=== PATIENT | female | born 1940 | race Caucasian/White ===

== ENCOUNTER 2017-03-07 11:08 | Observation (INO) | payer OTHER ==
[~2017-03-07] VITALS: Ht 165.1 cm; Wt 38.7 kg
[~2017-03-07 11:08] MED LIST: CHOL50006 PO; DICY1TAB26 PO; FAMO20 PO; HYDR-2768 PO; LOVA20TA PO; ZOFR4TAB3 SL
[2017-03-07 11:19] VITALS: BP 132/62; PULSE 94; RESP 18; TEMP 97.4; O2SAT 96
--- NOTE | 2017-03-07 11:29 | PD ---
HPI Chief Complaint: Fall Time Seen by Provider: 11:29 Travel History International Travel<30 days: No Contact w/Intl Traveler<30days: No Traveled to known affect area: No History of Present Illness HPI 76-year-old female with a history of hypertension and dementia is brought to the emergency room by EMS for evaluation of fall. Per EMS report the patient was sitting on the second step of her house when she got dizzy and fell forward hitting the right side of her head. Per EMS report there was no loss of consciousness. The patient has dementia and is oriented to person only and is unable to provide any history of events. Per EMS report this is the patient's mental status baseline, she lives with her son who is her caregiver. The patient is complaining of pain on the right side of her head and pain in her right elbow. She denies any other complaints however she is a poor historian due to dementia. PFSH Past Medical History Arthritis: Yes (HANDS) Asthma: No Blood Disorders: No Heart Rhythm Problems: No Cancer: No Cardiac Catheterization: No Cardiovascular Problems: Yes High Cholesterol: Yes Chest Pain: No Congestive Heart Failure: No COPD: No Cerebrovascular Accident: No Dementia: Yes Diabetes: No Diminished Hearing: No Endocrine: No GERD: No Genitourinary: No Hiatal Hernia: No Hypertension: Yes Immune Disorder: No Implanted Vascular Access Dvce: No Kidney Stones: No Musculoskeletal: Yes Neurologic: Yes Psychiatric: No Reproductive: No Respiratory: No Migraines: No Renal Failure: No Seizures: No Sleep Apnea: No Thyroid Disease: No Ulcer: No ?: Not Menopausal: Yes : 3 Para: 2 : 1 Ovarian Cysts: Yes Past Surgical History Abdominal Surgery: No AICD: No Appendectomy: Yes Arteriovenous Shunt: No Cardiac Surgery: No Coronary Artery Bypass Graft: No Ear Surgery: No Endocrine Surgery: No Eye Surgery: Yes (LEFT RETINA REPAIR BY LASER 2000) Genitourinary Surgery: Yes Gynecologic Surgery: Yes (CYST REMOVED FROM OVARY 194) Hysterectomy: Yes Insulin Pump: No Joint Replacement: No Oral Surgery: Yes (TEETH EXTRACTED) Pacemaker: No Thoracic Surgery: No Tonsillectomy: Yes Other Surgery: Yes Social History Alcohol Use: No Tobacco Use: Yes (2 PPD) Substance Use: No Allergies-Medications (Allergen,Severity, Reaction): Coded Allergies: No Known Allergies (Verified , 6/18/17) Reported Meds & Prescriptions Reported Meds & Active Scripts Active Active Prescriptions or Reported Medications Unobtainable Review of Systems Except as stated in HPI: all other systems reviewed are Neg Physical Exam Narrative GENERAL: Well-nourished and well-developed elderly patient in no acute distress. Backboard with cervical collar in place. SKIN: Abrasion to right scalp and right elbow. HEAD: Normocephalic and atraumatic. There is a contusion with swelling and tenderness to the right scalp. EYES: No scleral icterus, injection, or drainage. PERRLA. EOMI. No hyphema present. ENT: No septal hematoma or hemotympanum noted. Oropharynx is clear and the airway is patent. NECK: Supple and the trachea is midline. No obvious deformities or crepitus. CARDIOVASCULAR: Regular rate and rhythm. RESPIRATORY: Breath sounds are equal bilaterally with no accessory muscle use, wheezing, rhonchi, or crackles. GASTROINTESTINAL: Abdomen is soft, non-tender, and nondistended. MUSCULOSKELETAL: No obvious deformities, swelling, cyanosis, or ecchymosis is present throughout the upper and lower extremities. Patient has full range of motion without any signs of neurovascular compromise. BACK: Nontender without any obvious deformities, bony point tenderness, or crepitus noted throughout the thoracic and lumbar vertebrae. NEUROLOGICAL: Awake, alert, and oriented to person only. Patient is unaware of place, time or situation. Normal speech. Cranial nerves are grossly intact. Data Data Last Documented VS Vital Signs Date Time Temp Pulse Resp B/P Pulse Ox O2 Delivery O2 Flow Rate FiO2 03/07/17 13:05 79 18 132/85 97 Room Air 03/07/17 11:19 97.4 Orders Electrocardiogram (03/07/17 11:27) Complete Blood Count With Diff (03/07/17 11:27) Comprehensive Metabolic Panel (03/07/17 11:27) Ckmb (Isoenzyme) Profile (03/07/17 11:27) Troponin I (03/07/17 11:27) Act Partial Throm Time (Ptt) (03/07/17 11:27) Prothrombin Time / Inr (Pt) (03/07/17 11:27) Urinalysis - C+S If Indicated (03/07/17 11:27) Chest, Single Ap (03/07/17 11:27) Ct Brain W/O Iv Contrast(Rout) (03/07/17 11:27) Ct Cerv Spine W/O Contrast (03/07/17 11:27) Ecg Monitoring (03/07/17 11:27) Iv Access Insert/Monitor (03/07/17 11:27) Oximetry (03/07/17 11:27) Sodium Chloride 0.9% Flush (Ns Flush) (03/07/17 11:30) Cath For Specimen (03/07/17 11:27) Elbow, Complete (4 Vws) (03/07/17 11:27) Tetanus/Diphtheria Tox Adult (Tetanus/Di (03/07/17 11:30) Sodium Chlorid 0.9% 500 Ml Inj (Ns 500 M (03/07/17 11:45) Lactic Acid Sepsis Protocol (03/07/17 12:43) Blood Culture (03/07/17 12:43) Urine Culture (03/07/17 12:30) Ceftriaxone Inj (Rocephin Inj) (03/07/17 13:45) Potassium Chloride Eff (K-Lyte Cl Eff) (03/07/17 13:45) Admit Order (Ed Use Only) (03/07/17 14:20) Labs Laboratory Tests Test 03/07/17 03/07/17 03/07/17 12:18 12:30 13:00 White Blood Count 21.0 TH/MM3 Red Blood Count 4.60 MIL/MM3 Hemoglobin 13.9 GM/DL Hematocrit 41.1 % Mean Corpuscular Volume 89.5 FL Mean Corpuscular Hemoglobin 30.1 PG Mean Corpuscular Hemoglobin 33.7 % Concent Red Cell Distribution Width 13.8 % Platelet Count 472 TH/MM3 Mean Platelet Volume 9.3 FL Neutrophils (%) (Auto) 86.7 % Lymphocytes (%) (Auto) 6.7 % Monocytes (%) (Auto) 5.9 % Eosinophils (%) (Auto) 0.4 % Basophils (%) (Auto) 0.3 % Neutrophils # (Auto) 18.2 TH/MM3 Lymphocytes # (Auto) 1.4 TH/MM3 Monocytes # (Auto) 1.2 TH/MM3 Eosinophils # (Auto) 0.1 TH/MM3 Basophils # (Auto) 0.1 TH/MM3 CBC Comment DIFF FINAL Differential Comment Prothrombin Time 12.4 SEC Prothromb Time International 1.1 RATIO Ratio Activated Partial 30.8 SEC Thromboplast Time Sodium Level 139 MEQ/L Potassium Level 3.3 MEQ/L Chloride Level 102 MEQ/L Carbon Dioxide Level 29.4 MEQ/L Anion Gap 8 MEQ/L Blood Urea Nitrogen 14 MG/DL Creatinine 0.92 MG/DL Estimat Glomerular Filtration 60 ML/MIN Rate Random Glucose 123 MG/DL Calcium Level 9.8 MG/DL Total Bilirubin 0.4 MG/DL Aspartate Amino Transf 27 U/L (AST/SGOT) Alanine Aminotransferase 21 U/L (ALT/SGPT) Alkaline Phosphatase 102 U/L Total Creatine Kinase 67 U/L Troponin I LESS THAN 0.02 NG/ML Total Protein 7.8 GM/DL Albumin 3.2 GM/DL Urine Color YELLOW Urine Turbidity HAZY Urine pH 6.5 Urine Specific [place] 1.006 Urine Protein 30 mg/dL Urine Glucose (UA) NEG mg/dL Urine Ketones NEG mg/dL Urine Occult Blood SMALL Urine Nitrite NEG Urine Bilirubin NEG Urine Urobilinogen LESS THAN 2.0 MG/DL Urine Leukocyte Esterase LARGE Urine RBC 1 /hpf Urine WBC /hpf Urine WBC Clumps MANY Urine Bacteria MOD /hpf Microscopic Urinalysis Comment CATH-CULTURE IND Lactic Acid Level 1.2 mmol/L MDM Medical Decision Making Medical Screen Exam Complete: Yes Emergency Medical Condition: Yes Differential Diagnosis Intracranial hemorrhage versus concussion versus contusion versus fracture versus electrolyte abnormality versus UTI Narrative Course 76-year-old female is brought to the emergency department by EMS for evaluation of dizziness and fall. Patient is afebrile, vital signs are stable. The patient is unable to provide any history due to her dementia. She does complain of pain in the right side of her head and her right elbow. No focal neurologic deficits on examination. IV access is obtained, labs are drawn and sent. Patient is placed on cardiac telemetry and pulse oximetry monitoring. EKG shows sinus rhythm with occasional PVCs, no acute ST elevations or depressions. CT and x-ray imaging as been ordered and is pending. Head CT is negative for any acute abnormalities. CT of the cervical spine is negative for any acute abnormalities. Chest x-ray is negative. Right elbow x-ray is negative. CBC shows elevated white blood cell count 21, otherwise unremarkable. CMP shows hypokalemia with a potassium of 3.3, otherwise unremarkable. This is repleted orally here in the ED. Troponin is less than 0.02. Lactic acid is 1.2. Coags are unremarkable. Urinalysis shows 30 protein, small occult blood, large leukocyte Estrace, innumerable white blood cells, many white blood for, and moderate bacteria. Blood cultures are pending. Patient is administered IV fluids and Rocephin. She'll be admitted to medicine service for sepsis with UTI. Physician Communication Physician Communication I spoke with Dr. Casillas [facility] who agrees to admit the patient to his service. Diagnosis Primary Impression: Sepsis Qualified Code: A41.9 - Sepsis, due to unspecified organism Additional Impressions: Urinary tract infection Qualified Code: N39.0 - Urinary tract infection with hematuria, site unspecified Fall Qualified Code: W19.XXXA - Fall, initial encounter Admitting Information Admitting Physician Requests: Admit Scripts Unable to Obtain Active Prescriptions or Reported Meds Teresita hBatia Mar 07, 2017 11:29
[2017-03-07] MEDS ORDERED: TETANUS/DIPHTHERIA TOXOID ADULT 0.5 ML VIAL IM ONE (11:30)
[2017-03-07] MEDS ORDERED: SODIUM CHLORIDE 0.9% FLUSH 10 ML FLUSH IVF PRN (11:30)
[2017-03-07] MEDS ORDERED: SODIUM CHLORID 0.9% 500 ML INJ 500 ML IV ONE ×2 (11:45→14:30)
[2017-03-07 12:08] VITALS: O2SAT 96
--- NOTE | 2017-03-07 12:10 | RADRPT ---
EXAM DATE/TIME: 03/07/2017 11:41 [facility] COMPARISON: CT BRAIN W/O CONTRAST, April 18, 2012, 22:35. INDICATIONS : Fall today, laceration to forehead. RADIATION DOSE: 56.35 CTDIvol (mGy) MEDICAL HISTORY : Hypertension. Dementia. SURGICAL HISTORY : Hysterectomy. ENCOUNTER: Initial ACUITY: 1 day PAIN SCALE: Non-responsive LOCATION: Bilateral head TECHNIQUE: Multiple contiguous axial images were obtained of the head. Using automated exposure control and adj ustment of the mA and/or kV according to patient size, radiation dose was kept as low as reasonably a chievable to obtain optimal diagnostic quality images. FINDINGS: White matter ischemic changes are present which have progressed since the 2011 exam. Remote lacunar i nfarct right basal ganglia. No mass, hemorrhage, or midline shift. No hydrocephalus. No acute bony ab normality. CONCLUSION: 1. No acute findings. White matter ischemic changes that have progressed since 2012. Yousif Israel MD on March 07, 2017 at 12:06 Board Certified Radiologist. This report was verified electronically.
--- NOTE | 2017-03-07 12:15 | RADRPT ---
EXAM DATE/TIME: 03/07/2017 11:41 [facility] COMPARISON: No previous studies available for comparison. INDICATIONS : Fall today, laceration to forehead. RADIATION DOSE: 26.5 CTDIvol (mGy) MEDICAL HISTORY : Hypertension. Dementia. SURGICAL HISTORY : Hysterectomy. ENCOUNTER: Initial ACUITY: 1 day PAIN SCALE: Non-responsive LOCATION: Bilateral neck TECHNIQUE: Volumetric scanning of the cervical spine was performed. Multiplanar reconstructions in the sagittal, coronal and oblique axial planes were performed. Using automated exposure control and adjustment o f the mA and/or kV according to patient size, radiation dose was kept as low as reasonably achievable to obtain optimal diagnostic quality images. FINDINGS: No acute fracture. There is a grade 1 anterolisthesis of L3 on L4 likely degenerative. Slight bursal of normal cervical lordosis. There is mild AP canal canal stenosis at C5-6. No other significant bony canal stenosis. Moderate facet arthropathy. CONCLUSION: 1. No acute fracture. Mild degenerative anterolisthesis at C3-4 with slight reversal of normal cervic al lordosis. Yousif Israel MD on March 07, 2017 at 12:08 Board Certified Radiologist. This report was verified electronically.
--- NOTE | 2017-03-07 12:22 | RADRPT ---
EXAM DATE/TIME: 03/07/2017 12:00 [facility] COMPARISON: No previous studies available for comparison. INDICATIONS : Chest pain from fall. MEDICAL HISTORY : None. SURGICAL HISTORY : None. ENCOUNTER: Initial ACUITY: 1 day PAIN SCORE: Non-responsive. LOCATION: Bilateral chest FINDINGS: There is no focal consolidation or significant effusion. Heart size normal. Tortuous aorta. Mild scol iosis. CONCLUSION: 1. No acute findings. Mild hyperinflation. Yousif Israel MD on March 07, 2017 at 12:18 Board Certified Radiologist. This report was verified electronically.
--- NOTE | 2017-03-07 12:25 | RADRPT ---
EXAM DATE/TIME: 03/07/2017 12:06 [facility] COMPARISON: No previous studies available for comparison. INDICATIONS : Right elbow laceration and pain from fall. MEDICAL HISTORY : None. SURGICAL HISTORY : None. ENCOUNTER: Initial ACUITY: 1 day PAIN SCORE: Non-responsive. LOCATION: Right elbow FINDINGS: Multiple view examination of the right elbow demonstrates no soft tissue swelling, joint effusion, or fracture. The osseous structures are in normal alignment. Bony mineralization is decreased. CONCLUSION: 1. Osteopenia. No acute bony abnormality. Yousif Israel MD on March 07, 2017 at 12:20 Board Certified Radiologist. This report was verified electronically.
[2017-03-07 12:38] LABS: AUTOMATED NEUTROPHIL # 18.2 TH/MM3 (1.8-7.7); BASOPHIL # 0.1 TH/MM3 (0-0.2); BASOPHIL % 0.3 % (0.0-2.0); EOSINOPHIL # 0.1 TH/MM3 (0-0.4); EOSINOPHIL % 0.4 % (0.0-4.0); HEMATOCRIT 41.1 % (35.0-46.0); HEMO FLAGS DIFF FINAL; LYMPH % 6.7 % (9.0-44.0); LYMPHOCYTE # 1.4 TH/MM3 (1.0-4.8); MEAN CELL VOLUME 89.5 FL (80.0-100.0); MEAN CORPUSCULAR HEMOGLOBIN 30.1 PG (27.0-34.0); MEAN CORPUSCULAR HGB CONC 33.7 % (32.0-36.0); MONO % 5.9 % (0.0-8.0); NEUT % 86.7 % (16.0-70.0); PLATELET COUNT 472 TH/MM3 (150-450); RED CELL DISTRIBUTION WIDTH 13.8 % (11.6-17.2)
[2017-03-07 12:49] LABS: APTT (PATIENT) 30.8 SEC (24.3-30.1); INTERNATIONAL NORMALIZED RATIO 1.1 RATIO; PROTHROMBIN TIME - PATIENT 12.4 SEC (9.8-11.6)
[2017-03-07 12:56] LABS: BACTERIA, URINE MOD /hpf; BLOOD, URINE SMALL (NEG); GLUCOSE,URINE NEG (NEG); KETONE, URINE NEG (NEG); NITRITE,URINE NEG (NEG); PH, URINE 6.5 (5.0-8.5); URINE COLOR YELLOW (YELLW/STRAW)
[2017-03-07 12:58] LABS: COMMENT (UR) CATH-CULTURE IND; CULTURE IF INDICATED CATH CULTURE IND
[2017-03-07 13:05] VITALS: BP 132/85; PULSE 79; RESP 18; O2SAT 97
[2017-03-07 13:06] LABS: ALT (GPT) 21 U/L (10-53); ANION GAP 8 MEQ/L (5-15); AST (GOT) 27 U/L (15-37); BICARBONATE 29.4 MEQ/L (21.0-32.0); BLOOD UREA NITROGEN 14 MG/DL (7-18); CHLORIDE 102 MEQ/L (98-107); GLOMERULAR FILTRATION RATE 60 ML/MIN (>89); POTASSIUM 3.3 MEQ/L (3.5-5.1); SODIUM (NA) 139 MEQ/L (136-145)
[2017-03-07 13:10] LABS: ALKALINE PHOSPHATASE 102 U/L (45-117); TOTAL BILIRUBIN ADULT 0.4 MG/DL (0.2-1.0)
[2017-03-07 13:17] LABS: CREATINE KINASE 67 U/L (26-192)
[2017-03-07] MEDS ORDERED: POTASSIUM CHLORIDE 25 MEQ EFFERVESCENT TAB PO ONE (13:45)
[2017-03-07] MEDS ORDERED: cefTRIAXone INJ 1,000 MG in SODIUM CHLORIDE 0.9% INJ 100 ML IV ONE (13:45)
[2017-03-07] MEDS ORDERED: ONDANSETRON HCL 4 MG/2 ML VIAL IV PUSH PRN (14:30)
[2017-03-07] MEDS ORDERED: ACETAMINOPHEN 325 MG TAB PO PRN (14:30)
[2017-03-07] MEDS ORDERED: SODIUM CHLOR 0.9% 1000 ML INJ 1,000 ML IV SCH (14:32)
--- NOTE | 2017-03-07 14:44 | HHI.HP ---
[facility] Service [facility] Primary Care Physician Armando Mishra M.D. Admission Diagnosis Sepsis, UTI, Fall Diagnoses: (1) Sepsis Diagnosis: Principal (2) Fall Diagnosis: Principal (3) Urinary tract infection Diagnosis: Principal Chief Complaint: fall Travel History International Travel<30 Days: No Contact w/Intl Traveler <30 Da: No Traveled to Known Affected Are: No Sepsis Criteria SIRS Criteria (2 or more): Heart rate over 90, WBC > 73031, < 4000 or > 10% bands Sepsis Criteria (SIRS+source): Infect source susp/known Criteria Outcome: Meets sepsis criteria History of Present Illness patient is a 76 y/o female with history of dementia,hypertension and COPD who was brought to ER after she fell at home. patient is not a good historian and most of the information was obtained from ER documents and caregiver. she reportedly fell at home earlier. there's no report of loss of consciousness. she was in no acute distress and denies any pain at the time of my evaluation. Review of Systems Constitutional: DENIES: Fever, Weight loss, Chills, Night Sweats Eyes: DENIES: Blurred vision, Diplopia, Vision loss, Double Vision Ears, nose, mouth, throat: DENIES: Tinnitus, Vertigo, Throat pain, Epistaxis Respiratory: DENIES: Apneas, Cough, Snoring, Wheezing, Hemoptysis, Sputum production, Shortness of breath Cardiovascular: DENIES: Chest pain, Palpitations, Syncope, Dyspnea on Exertion , PND, Lower Extremity Edema, Orthopnea, Claudication Gastrointestinal: DENIES: Abdominal pain, Black stools, Bloody stools, Constipation, Diarrhea, Nausea, Vomiting, Difficulty Swallowing, Anorexia Genitourinary: DENIES: Urinary frequency, Urgency, Hematuria, Dysuria Musculoskeletal: DENIES: Joint pain, Muscle aches, Stiffness, Joint Swelling Integumentary: DENIES: Rash Neurologic: DENIES: Abnormal gait, Headache, Localized weakness, Paresthesias, Seizures, Speech Problems, Tremor, Poor Balance Psychiatric: DENIES: Anxiety, Confusion, Mood changes, Depression, Hallucinations, Agitation, Suicidal Ideation, Homicidal Ideation, Delusions Past Family Social History Past Medical History dementia hypertension COPD Past Surgical History appendectomy Reported Medications to be verified. Allergies: Coded Allergies: No Known Allergies (Verified , 03/07/17) Active Ordered Medications Current Medications Sodium Chloride (NS Flush) 2 ml UNSCH PRN IVF FLUSH AFTER USING IV ACCESS; Start 03/07/17 at 11:30 Tetanus/ Diphtheria Toxoids 0.5 ml 0.5 ml ONCE ONCE IM Last administered on 12:14; Start 03/07/17 at 11:30; Stop 03/07/17 at 11:31; Status DC Sodium Chloride 500 ml @ 500 mls/hr ONCE ONCE IV Last administered on 12:14; Start 03/07/17 at 11:45; Stop 03/07/17 at 12:44; Status DC Ceftriaxone Sodium/Sodium Chloride (Rocephin Inj/NS Inj) 100 ml @ 200 mls/hr ONCE ONCE IV ; Start 03/07/17 at 13:45; Stop 03/07/17 at 14:14; Status DC Potassium Bicarb/ Potassium Chloride (K-Lyte Cl Eff) 25 meq ONCE ONCE PO ; Start 03/07/17 at 13:45; Stop 03/07/17 at 13:46; Status DC Family History not relevant to this admission. Social History ex-smoker.lives with her son and the caregiver. Physical Exam Vital Signs Vital Signs Date Time Temp Pulse Resp B/P Pulse Ox O2 Delivery O2 Flow Rate FiO2 03/07/17 13:05 79 18 132/85 97 Room Air 03/07/17 12:08 96 Room Air 03/07/17 11:21 90 18 94 Room Air 03/07/17 11:19 97.4 94 18 132/62 96 Physical Exam GENERAL: This is a well-nourished, well-developed patient, in no apparent distress. SKIN: No rashes, ecchymoses or lesions. Cool and dry. HEAD:superficial laceration on the right scalp with no bleeding. EYES: Pupils equal round and reactive. Extraocular motions intact. No scleral icterus. No injection or drainage. ENT: Nose without bleeding, purulent drainage or septal hematoma. Throat without erythema, tonsillar hypertrophy or exudate. Uvula midline. Airway patent. NECK: Trachea midline. No JVD or lymphadenopathy. Supple, nontender, no meningeal signs. CARDIOVASCULAR: Regular rate and rhythm without murmurs, gallops, or rubs. RESPIRATORY: Clear to auscultation. Breath sounds equal bilaterally. No wheezes , rales, or rhonchi. GASTROINTESTINAL: Abdomen soft, non-tender, nondistended. No hepato-splenomegaly , or palpable masses. No guarding. MUSCULOSKELETAL: Extremities without clubbing, cyanosis, or edema. No joint tenderness, effusion, or edema noted. No calf tenderness. Negative Homans sign bilaterally. NEUROLOGICAL: Awake and alert. oriented to person but not oriented to place or time Laboratory Laboratory Tests Test 03/07/17 03/07/17 03/07/17 12:18 12:30 13:00 White Blood Count 21.0 Red Blood Count 4.60 Hemoglobin 13.9 Hematocrit 41.1 Mean Corpuscular Volume 89.5 Mean Corpuscular Hemoglobin 30.1 Mean Corpuscular Hemoglobin 33.7 Concent Red Cell Distribution Width 13.8 Platelet Count 472 Mean Platelet Volume 9.3 Neutrophils (%) (Auto) 86.7 Lymphocytes (%) (Auto) 6.7 Monocytes (%) (Auto) 5.9 Eosinophils (%) (Auto) 0.4 Basophils (%) (Auto) 0.3 Neutrophils # (Auto) 18.2 Lymphocytes # (Auto) 1.4 Monocytes # (Auto) 1.2 Eosinophils # (Auto) 0.1 Basophils # (Auto) 0.1 CBC Comment DIFF FINAL Differential Comment Prothrombin Time 12.4 Prothromb Time International 1.1 Ratio Activated Partial 30.8 Thromboplast Time Sodium Level 139 Potassium Level 3.3 Chloride Level 102 Carbon Dioxide Level 29.4 Anion Gap 8 Blood Urea Nitrogen 14 Creatinine 0.92 Estimat Glomerular Filtration 60 Rate Random Glucose 123 Calcium Level 9.8 Total Bilirubin 0.4 Aspartate Amino Transf 27 (AST/SGOT) Alanine Aminotransferase 21 (ALT/SGPT) Alkaline Phosphatase 102 Total Creatine Kinase 67 Troponin I LESS THAN 0.02 Total Protein 7.8 Albumin 3.2 Urine Color YELLOW Urine Turbidity HAZY Urine pH 6.5 Urine Specific [place] 1.006 Urine Protein 30 Urine Glucose (UA) NEG Urine Ketones NEG Urine Occult Blood SMALL Urine Nitrite NEG Urine Bilirubin NEG Urine Urobilinogen LESS THAN 2.0 Urine Leukocyte Esterase LARGE Urine RBC 1 Urine WBC Urine WBC Clumps MANY Urine Bacteria MOD Microscopic Urinalysis Comment CATH-CULTURE IND Lactic Acid Level 1.2 Date/Time Procedure Status Source Growth 03/07/17 13:05 Aerobic Blood Culture Received Blood Peripheral Pending 03/07/17 13:05 Anaerobic Blood Culture Received Blood Peripheral Pending 03/07/17 12:30 Urine Culture Received Urine Catheterized Urine Pending Result Diagram: 03/07/17 1218 03/07/17 1218 Imaging Last Impressions Head CT 03/07/177 Signed Impressions: Service Date/Time: Tuesday, March 07, 2017 11:41 - CONCLUSION: 1. No acute findings. White matter ischemic changes that have progressed since 2011. Yousif Israel MD Elbow X-Ray 03/07/171126 Signed Impressions: Service Date/Time: Tuesday, March 07, 2017 12:06 - CONCLUSION: 1. Osteopenia. No acute bony abnormality. Yousif Israel MD Chest X-Ray 03/07/171126 Signed Impressions: Service Date/Time: Tuesday, March 07, 2017 12:00 - CONCLUSION: 1. No acute findings. Mild hyperinflation. Yousif Israel MD Cervical Spine CT 03/07/171126 Signed Impressions: Service Date/Time: Tuesday, March 07, 2017 11:41 - CONCLUSION: 1. No acute fracture. Mild degenerative anterolisthesis at C3-4 with slight reversal of normal cervical lordosis. Yousif Israel MD Assessment and Plan Assessment and Plan A/P - sepsis due to UTI continue with IV Rocephin- follow the cultures- will monitor temps- CBC in am. - fall- fall precautions- consult PT - hypokalemia- replaced- will monitor -history of hypertension, COPD and dementia; will verify the home meds and resume as appropriate -DVT prophylaxis with SCD's Discussed Condition With the patient and her caregiver- ER. Physician Certification 2 Midnight Certification Type: Admission for Inpatient Services Order for Inpatient Services The services are ordered in accordance with Medicare regulations or non- Medicare payer requirements, as applicable. In the case of services not specified as inpatient-only, they are appropriately provided as inpatient services in accordance with the 2-midnight benchmark. Estimated LOS (days): 2 days is the estimated time the patient will need to remain in the hospital, assuming treatment plan goals are met and no additional complications. Post-Hospital Plan: Not yet determined Problem Qualifiers (1) Sepsis: Qualified Code: A41.9 - Sepsis, due to unspecified organism (2) Fall: Qualified Code: W19.XXXA - Fall, initial encounter (3) Urinary tract infection: Qualified Code: N39.0 - Urinary tract infection with hematuria, site unspecified See Casillas MD Mar 07, 2017 14:44
[2017-03-07 14:47] VITALS: BP 127/56; PULSE 89; RESP 18; O2SAT 98
[2017-03-07 18:34] VITALS: BP 138/76; RESP 18; TEMP 98.3
[2017-03-07 20:00] VITALS: BP 94/64; PULSE 82; RESP 17; TEMP 96.3; O2SAT 98
[2017-03-08] VITALS: BP 107/62; PULSE 70; RESP 17; TEMP 96; O2SAT 96
[2017-03-08 05:16] LABS: AUTOMATED NEUTROPHIL # 13.8 TH/MM3 (1.8-7.7); BASOPHIL # 0.1 TH/MM3 (0-0.2); BASOPHIL % 0.5 % (0.0-2.0); EOSINOPHIL # 0.1 TH/MM3 (0-0.4); EOSINOPHIL % 0.7 % (0.0-4.0); HEMATOCRIT 37.8 % (35.0-46.0); HEMO FLAGS DIFF FINAL; LYMPH % 13.3 % (9.0-44.0); LYMPHOCYTE # 2.3 TH/MM3 (1.0-4.8); MEAN CELL VOLUME 91.3 FL (80.0-100.0); MEAN CORPUSCULAR HEMOGLOBIN 29.2 PG (27.0-34.0); MONO % 5.3 % (0.0-8.0); NEUT % 80.2 % (16.0-70.0); PLATELET COUNT 394 TH/MM3 (150-450); RED BLOOD COUNT 4.14 MIL/MM3 (4.00-5.30); RED CELL DISTRIBUTION WIDTH 13.6 % (11.6-17.2); WHITE BLOOD COUNT 17.2 TH/MM3 (4.0-11.0)
[2017-03-08 05:29] LABS: BICARBONATE 26.4 MEQ/L (21.0-32.0); POTASSIUM 3.3 MEQ/L (3.5-5.1)
[2017-03-08 07:53] VITALS: BP 129/59; PULSE 76; RESP 17; TEMP 97.8; O2SAT 95
--- NOTE | 2017-03-08 10:13 | HHI.PR ---
Subjective Remarks in no acute distress. denies pain. afebrile. Objective Vitals Vital Signs Date Time Temp Pulse Resp B/P Pulse Ox O2 Delivery O2 Flow Rate FiO2 03/08/17 07:53 97.8 76 17 129/59 95 03/08/17 00:00 96.0 70 17 107/62 96 03/07/17 20:00 96.3 82 17 94/64 98 03/07/17 18:34 98.3 18 138/76 03/07/17 14:47 89 18 127/56 98 Room Air 03/07/17 13:05 79 18 132/85 97 Room Air 03/07/17 12:08 96 Room Air 03/07/17 11:21 90 18 94 Room Air 03/07/17 11:19 97.4 94 18 132/62 96 I/O 03/07/17 03/07/17 03/07/17 03/08/17 03/08/17 03/08/17 07:00 15:00 23:00 07:00 15:00 23:00 Intake Total 240 ml 240 ml 120 ml Balance 240 ml 240 ml 120 ml Intake Oral 240 ml 240 ml 120 ml IV Total 0 ml 0 ml # Voids 1 1 Result Diagram: 03/08/17 0421 03/08/17 0421 Imaging Last Impressions Head CT 03/07/171126 Signed Impressions: Service Date/Time: Tuesday, March 07, 2017 11:41 - CONCLUSION: 1. No acute findings. White matter ischemic changes that have progressed since 2011. Yousif Israel MD Elbow X-Ray 03/07/171126 Signed Impressions: Service Date/Time: Tuesday, March 07, 2017 12:06 - CONCLUSION: 1. Osteopenia. No acute bony abnormality. Yousif Israel MD Chest X-Ray 03/07/171126 Signed Impressions: Service Date/Time: Tuesday, March 07, 2017 12:00 - CONCLUSION: 1. No acute findings. Mild hyperinflation. Yousif Israel MD Cervical Spine CT 03/07/171126 Signed Impressions: Service Date/Time: Tuesday, March 07, 2017 11:41 - CONCLUSION: 1. No acute fracture. Mild degenerative anterolisthesis at C3-4 with slight reversal of normal cervical lordosis. Yousif Israel MD Objective Remarks GENERAL: This is a well-nourished, well-developed patient, in no apparent distress. CARDIOVASCULAR: Regular rate and regular rhythm without murmurs, gallops, or rubs. RESPIRATORY: Clear to auscultation. Breath sounds equal bilaterally. No wheezes , rales, or rhonchi. GASTROINTESTINAL: Abdomen soft, non-tender, nondistended. Normal, active bowel sounds MUSCULOSKELETAL: Extremities without clubbing, cyanosis, or edema. NEURO: awake and alert. Moves all ext x4 Procedures none Medications and IVs Current Medications Sodium Chloride (NS Flush) 2 ml UNSCH PRN IVF FLUSH AFTER USING IV ACCESS; Start 03/07/17 at 11:30 Tetanus/ Diphtheria Toxoids 0.5 ml 0.5 ml ONCE ONCE IM Last administered on 12:14; Start 03/07/17 at 11:30; Stop 03/07/17 at 11:31; Status DC Sodium Chloride 500 ml @ 500 mls/hr ONCE ONCE IV Last administered on 12:14; Start 03/07/17 at 11:45; Stop 03/07/17 at 12:44; Status DC Ceftriaxone Sodium/Sodium Chloride (Rocephin Inj/NS Inj) 100 ml @ 200 mls/hr ONCE ONCE IV Last administered on 03/07/17 14:45; Start 03/07/17 at 13:45; Stop 03/07/17 at 14:14; Status DC Potassium Bicarb/ Potassium Chloride 25 meq 25 meq ONCE ONCE PO Last administered on 03/07/17 14:44; Start 03/07/17 at 13:45; Stop 03/07/17 at 13:46 ; Status DC Sodium Chloride 1,000 ml @ 1,000 mls/hr Q1H IV Last administered on 03/07/17 14:46; Start 03/07/17 at 14:32; Stop 03/07/17 at 15:31; Status DC Ceftriaxone Sodium/Sodium Chloride (Rocephin Inj/NS Inj) 100 ml @ 200 mls/hr Q24H IV ; Start 03/08/17 at 14:00 Acetaminophen (Tylenol) 650 mg Q4H PRN PO FEVER/PAIN Last administered on 15:03; Start 03/07/17 at 14:30 Ondansetron HCl 4 mg 4 mg Q8H PRN IV PUSH NAUSEA; Start 03/07/17 at 14:30 Sodium Chloride (NS 500 ml Inj) 500 ml @ 50 mls/hr Q10H ONCE IV ; Start at 14:30; Stop 03/07/17 at 14:46; Status DC A/P Assessment and Plan A/P - sepsis due to UTI continue with IV Rocephin- follow the cultures- will monitor temps- leukocytosis improving- repeat CBC in am. - fall- fall precautions- consulted PT - hypokalemia- will replace. -history of hypertension, COPD and dementia; home meds to be verified. -DVT prophylaxis with lovenox. Discharge Planning dc home in am if stable-pending the cultures. See Casillas MD Mar 08, 2017 10:13
[2017-03-08] MEDS ORDERED: SODIUM CHLORID 0.9% 500 ML INJ 500 ML IV ONE (10:15)
[2017-03-08] MEDS ORDERED: POTASSIUM CHLORIDE 10 MEQ CONTROLLED RELEASE TAB PO ONE (10:15)
[2017-03-08] MEDS: ENOXAPARIN SODIUM 40 MG/0.4 ML SYRINGE SQ SCH (11:25)
[2017-03-08 12:00] VITALS: BP 138/66; PULSE 70; RESP 17; TEMP 97.4; O2SAT 95
[2017-03-08] MEDS: cefTRIAXone INJ 2,000 MG in SODIUM CHLORIDE 0.9% INJ 100 ML IV SCH (13:52)
--- NOTE | 2017-03-08 15:29 | EKG ---
Date Performed: 03/07/2017 Time Performed: 11:33:36 PTAGE: 76 years EKG: Sinus rhythm WITH OCCASIONAL VENTRICULAR PREMATURE COMPLEXES MARKED LEFT AXIS DEVIATION When compared to previous tracing, apremature ventricular Contraction is now seen. ABNORMAL ECGPREVIOUS TRACING : 2013 10.49 DOCTOR: Bry Jensen Interpretating Date/Time 03/08/2017 15:29:35
[2017-03-08 16:00] VITALS: BP 130/77; PULSE 85; RESP 17; TEMP 97.3; O2SAT 97
[2017-03-08 20:00] VITALS: BP 139/71; PULSE 87; RESP 20; TEMP 97; O2SAT 96
[2017-03-09] VITALS: BP 144/69; PULSE 84; RESP 20; TEMP 97; O2SAT 99
[2017-03-09 06:27] LABS: AUTOMATED NEUTROPHIL # 10.3 TH/MM3 (1.8-7.7); BASOPHIL # 0.1 TH/MM3 (0-0.2); BASOPHIL % 0.7 % (0.0-2.0); EOSINOPHIL # 0.2 TH/MM3 (0-0.4); EOSINOPHIL % 1.2 % (0.0-4.0); HEMATOCRIT 39.4 % (35.0-46.0); HEMO FLAGS DIFF FINAL; LYMPH % 14.6 % (9.0-44.0); MEAN CELL VOLUME 90.6 FL (80.0-100.0); MEAN CORPUSCULAR HEMOGLOBIN 29.7 PG (27.0-34.0); MEAN CORPUSCULAR HGB CONC 32.8 % (32.0-36.0); MONO % 6.8 % (0.0-8.0); NEUT % 76.7 % (16.0-70.0); PLATELET COUNT 457 TH/MM3 (150-450); RED BLOOD COUNT 4.35 MIL/MM3 (4.00-5.30); WHITE BLOOD COUNT 13.4 TH/MM3 (4.0-11.0)
[2017-03-09 08:00] VITALS: BP 151/88; PULSE 109; RESP 17; TEMP 95.4; O2SAT 97
[2017-03-09] MEDS ORDERED: CIPR-9 PO (11:55)
--- NOTE | 2017-03-09 11:55 | HHI.PR ---
Subjective Remarks resting comfortably with no distress. no fever. no pain. d/w the RN. Objective Vitals Vital Signs Date Time Temp Pulse Resp B/P Pulse Ox O2 Delivery O2 Flow Rate FiO2 03/09/17 08:00 95.4 109 17 151/88 97 03/09/17 00:00 97.0 84 20 144/69 99 03/08/17 20:00 97.0 87 20 139/71 96 03/08/17 16:00 97.3 85 17 130/77 97 03/08/17 12:00 97.4 70 17 138/66 95 I/O 03/08/17 03/08/17 03/08/17 03/09/17 03/09/17 03/09/17 07:00 15:00 23:00 07:00 15:00 23:00 Intake Total 240 ml 986 ml 120 ml 120 ml Output Total 500 ml Balance 240 ml 486 ml 120 ml 120 ml Intake Oral 240 ml 880 ml 120 ml 120 ml IV Total 0 ml 106 ml 0 ml Output Urine Total 500 ml # Voids 1 1 3 # Bowel Movements 0 0 0 Result Diagram: 03/09/17 0538 03/08/17 0421 Imaging Last Impressions Head CT 03/07/171126 Signed Impressions: Service Date/Time: Tuesday, March 07, 2017 11:41 - CONCLUSION: 1. No acute findings. White matter ischemic changes that have progressed since 2011. Yousif Israel MD Elbow X-Ray 03/07/171126 Signed Impressions: Service Date/Time: Tuesday, March 07, 2017 12:06 - CONCLUSION: 1. Osteopenia. No acute bony abnormality. Yousif Israel MD Chest X-Ray 03/07/171126 Signed Impressions: Service Date/Time: Tuesday, March 07, 2017 12:00 - CONCLUSION: 1. No acute findings. Mild hyperinflation. Yousif Israel MD Cervical Spine CT 03/07/171126 Signed Impressions: Service Date/Time: Tuesday, March 07, 2017 11:41 - CONCLUSION: 1. No acute fracture. Mild degenerative anterolisthesis at C3-4 with slight reversal of normal cervical lordosis. Yousif Israel MD Objective Remarks GENERAL: This is a well-nourished, well-developed patient, in no apparent distress. CARDIOVASCULAR: Regular rate and regular rhythm without murmurs, gallops, or rubs. RESPIRATORY: Clear to auscultation. Breath sounds equal bilaterally. No wheezes , rales, or rhonchi. GASTROINTESTINAL: Abdomen soft, non-tender, nondistended. Normal, active bowel sounds MUSCULOSKELETAL: Extremities without clubbing, cyanosis, or edema. NEURO: awake and alert. Moves all ext x4 Procedures none Medications and IVs Current Medications Sodium Chloride (NS Flush) 2 ml UNSCH PRN IVF FLUSH AFTER USING IV ACCESS; Start 03/07/17 at 11:30 Tetanus/ Diphtheria Toxoids 0.5 ml 0.5 ml ONCE ONCE IM Last administered on 12:14; Start 03/07/17 at 11:30; Stop 03/07/17 at 11:31; Status DC Sodium Chloride 500 ml @ 500 mls/hr ONCE ONCE IV Last administered on 12:14; Start 03/07/17 at 11:45; Stop 03/07/17 at 12:44; Status DC Ceftriaxone Sodium/Sodium Chloride (Rocephin Inj/NS Inj) 100 ml @ 200 mls/hr ONCE ONCE IV Last administered on 03/07/17 14:45; Start 03/07/17 at 13:45; Stop 03/07/17 at 14:14; Status DC Potassium Bicarb/ Potassium Chloride 25 meq 25 meq ONCE ONCE PO Last administered on 03/07/17 14:44; Start 03/07/17 at 13:45; Stop 03/07/17 at 13:46 ; Status DC Sodium Chloride 1,000 ml @ 1,000 mls/hr Q1H IV Last administered on 03/07/17 14:46; Start 03/07/17 at 14:32; Stop 03/07/17 at 15:31; Status DC Ceftriaxone Sodium/Sodium Chloride (Rocephin Inj/NS Inj) 100 ml @ 200 mls/hr Q24H IV Last administered on 03/08/17 13:52; Start 03/08/17 at 14:00 Acetaminophen (Tylenol) 650 mg Q4H PRN PO FEVER/PAIN Last administered on 15:03; Start 03/07/17 at 14:30 Ondansetron HCl 4 mg 4 mg Q8H PRN IV PUSH NAUSEA; Start 03/07/17 at 14:30 Sodium Chloride 500 ml @ 50 mls/hr Q10H ONCE IV ; Start 03/07/17 at 14:30; Stop 03/07/17 at 14:46; Status DC Sodium Chloride (NS 500 ml Inj) 500 ml @ 50 mls/hr Q10H ONCE IV Last administered on 03/08/17 11:24; Start 03/08/17 at 10:15; Stop 03/08/17 at 20:14 ; Status DC Enoxaparin Sodium (Lovenox Inj) 40 mg Q24H SQ Last administered on 03/08/17 11 :25; Start 03/08/17 at 11:00 Potassium Chloride (KCl) 30 meq ONCE ONCE PO Last administered on 03/08/17 11 :25; Start 03/08/17 at 10:15; Stop 03/08/17 at 10:22; Status DC A/P Assessment and Plan A/P - sepsis due to UTI continue with IV Rocephin- switch to po cipro upon discharge. urine culture with e-coli. will monitor temps- leukocytosis improving- - fall- fall precautions- consulted PT - hypokalemia- replaced. -history of hypertension, COPD and dementia; awaiting the home meds to be verified. -DVT prophylaxis with lovenox. Discharge Planning dc home with [facility] vs rehab. d/w the RN and case management. See Casillas MD Mar 09, 2017 11:54
--- NOTE | 2017-03-09 11:56 | HHI.FF ---
Face to Face Verification Diagnosis: (1) Fall (2) Urinary tract infection Physical Therapy Order: Evaluate and Treat Home Health Nursing Order: Medical education Signs/symptoms of disease process Nursing assessment with vital signs I have seen patient Alecia Charles on 03/09/17. My clinical findings support the need for the requested home health care services because: Ltd mobility - disease progression I certify that my clinical findings support that this patient is homebound because: Unsteady gait/balance See Casillas MD Mar 09, 2017 11:56
[2017-03-09 12:00] VITALS: BP 120/59; PULSE 89; RESP 18; TEMP 95.7; O2SAT 95
[2017-03-09] MEDS ORDERED: GETGO ROLLING W1 MI1 (12:00)
[2017-03-09] MEDS: cefTRIAXone INJ 2,000 MG in SODIUM CHLORIDE 0.9% INJ 100 ML IV SCH (12:31)
[2017-03-09] MEDS: ENOXAPARIN SODIUM 40 MG/0.4 ML SYRINGE SQ SCH (12:31)
[2017-03-09 16:00] VITALS: BP 136/73; PULSE 82; RESP 16; TEMP 96; O2SAT 97
[2017-03-09] MEDS ORDERED: CHOL1CAP14 PO (17:11)
[2017-03-09] MEDS ORDERED: AMLO5TAB2 PO (17:11)
[2017-03-09] MEDS ORDERED: ONETAB22 PO (17:11)
[2017-03-09] MEDS ORDERED: OMEGCAP PO (17:11)
[2017-03-09] MEDS ORDERED: MEMA7CAP PO (17:13)
[2017-03-09] MEDS ORDERED: LOVA20TA PO (17:14)
[2017-03-09] MEDS ORDERED: ENSULIQ8 PO (17:56)
[2017-03-09 20:00] VITALS: BP 114/62; PULSE 88; RESP 18; TEMP 97.7; O2SAT 94
[2017-03-10] VITALS: BP 107/62; PULSE 85; RESP 16; TEMP 97; O2SAT 95
[2017-03-10] MEDS: SODIUM CHLOR 0.9% 1000 ML INJ 1,000 ML IV SCH ×2 (07:56→21:20)
[2017-03-10 08:00] VITALS: BP 117/66; PULSE 83; RESP 16; TEMP 97.6; O2SAT 94
--- NOTE | 2017-03-10 10:05 | HHI.PR ---
Subjective Remarks sitting on the chair with no distress. no pain or fever. d/w the RN and reportedly had low urine output over night. no other acute issues reported. Objective Vitals Vital Signs Date Time Temp Pulse Resp B/P Pulse Ox O2 Delivery O2 Flow Rate FiO2 03/10/17 08:00 97.6 83 16 117/66 94 03/10/17 00:00 97.0 85 16 107/62 95 03/09/17 20:00 97.7 88 18 114/62 94 03/09/17 16:00 96.0 82 16 136/73 97 03/09/17 12:00 95.7 89 18 120/59 95 I/O 03/09/17 03/09/17 03/09/17 03/10/17 03/10/17 03/10/17 07:00 15:00 23:00 07:00 15:00 23:00 Intake Total 120 ml 275 ml 120 ml 120 ml Output Total 575 ml 300 ml Balance 120 ml -300 ml -180 ml 120 ml Intake Oral 120 ml 175 ml 120 ml 120 ml IV Total 0 ml 100 ml 0 ml Output Urine Total 575 ml 300 ml # Voids 3 2 0 # Bowel Movements 0 0 1 0 Result Diagram: 03/09/17 0538 03/08/17 0421 Imaging Last Impressions Head CT 03/07/171126 Signed Impressions: Service Date/Time: Tuesday, March 07, 2017 11:41 - CONCLUSION: 1. No acute findings. White matter ischemic changes that have progressed since 2011. Yousif Israel MD Elbow X-Ray 03/07/171126 Signed Impressions: Service Date/Time: Tuesday, March 07, 2017 12:06 - CONCLUSION: 1. Osteopenia. No acute bony abnormality. Yousif Israel MD Chest X-Ray 03/07/171126 Signed Impressions: Service Date/Time: Tuesday, March 07, 2017 12:00 - CONCLUSION: 1. No acute findings. Mild hyperinflation. Yousif Israel MD Cervical Spine CT 03/07/171126 Signed Impressions: Service Date/Time: Tuesday, March 07, 2017 11:41 - CONCLUSION: 1. No acute fracture. Mild degenerative anterolisthesis at C3-4 with slight reversal of normal cervical lordosis. Yousif Israel MD Objective Remarks GENERAL: This is a well-nourished, well-developed patient, in no apparent distress. CARDIOVASCULAR: Regular rate and regular rhythm without murmurs, gallops, or rubs. RESPIRATORY: Clear to auscultation. Breath sounds equal bilaterally. No wheezes , rales, or rhonchi. GASTROINTESTINAL: Abdomen soft, non-tender, nondistended. Normal, active bowel sounds MUSCULOSKELETAL: Extremities without clubbing, cyanosis, or edema. NEURO: awake and alert. Moves all ext x4 Procedures none Medications and IVs Current Medications Sodium Chloride (NS Flush) 2 ml UNSCH PRN IVF FLUSH AFTER USING IV ACCESS; Start 03/07/17 at 11:30 Tetanus/ Diphtheria Toxoids 0.5 ml 0.5 ml ONCE ONCE IM Last administered on 12:14; Start 03/07/17 at 11:30; Stop 03/07/17 at 11:31; Status DC Sodium Chloride 500 ml @ 500 mls/hr ONCE ONCE IV Last administered on 12:14; Start 03/07/17 at 11:45; Stop 03/07/17 at 12:44; Status DC Ceftriaxone Sodium/Sodium Chloride (Rocephin Inj/NS Inj) 100 ml @ 200 mls/hr ONCE ONCE IV Last administered on 03/07/17 14:45; Start 03/07/17 at 13:45; Stop 03/07/17 at 14:14; Status DC Potassium Bicarb/ Potassium Chloride 25 meq 25 meq ONCE ONCE PO Last administered on 03/07/17 14:44; Start 03/07/17 at 13:45; Stop 03/07/17 at 13:46 ; Status DC Sodium Chloride 1,000 ml @ 1,000 mls/hr Q1H IV Last administered on 03/07/17 14:46; Start 03/07/17 at 14:32; Stop 03/07/17 at 15:31; Status DC Ceftriaxone Sodium/Sodium Chloride (Rocephin Inj/NS Inj) 100 ml @ 200 mls/hr Q24H IV Last administered on 03/09/17 12:31; Start 03/08/17 at 14:00 Acetaminophen (Tylenol) 650 mg Q4H PRN PO FEVER/PAIN Last administered on 15:03; Start 03/07/17 at 14:30 Ondansetron HCl 4 mg 4 mg Q8H PRN IV PUSH NAUSEA; Start 03/07/17 at 14:30 Sodium Chloride 500 ml @ 50 mls/hr Q10H ONCE IV ; Start 03/07/17 at 14:30; Stop 03/07/17 at 14:46; Status DC Sodium Chloride (NS 500 ml Inj) 500 ml @ 50 mls/hr Q10H ONCE IV Last administered on 03/08/17 11:24; Start 03/08/17 at 10:15; Stop 03/08/17 at 20:14 ; Status DC Enoxaparin Sodium (Lovenox Inj) 40 mg Q24H SQ Last administered on 03/09/17 12 :31; Start 03/08/17 at 11:00 Potassium Chloride 30 meq 30 meq ONCE ONCE PO Last administered on 03/08/17 11:25; Start 03/08/17 at 10:15; Stop 03/08/17 at 10:22; Status DC Sodium Chloride (NS 1000 ml Inj) 1,000 ml @ 75 mls/hr [id number] IV Last administered on 03/10/17 07:56; Start 03/10/17 at 08:00 A/P Assessment and Plan A/P - sepsis due to UTI continue with IV Rocephin- switch to po cipro upon discharge. urine culture with e-coli. leukocytosis improving- - fall- fall precautions- consulted PT - hypokalemia- replaced. -history of hypertension, COPD and dementia- resume home meds. -oliguria; start IV fluid and monitor the urine output -DVT prophylaxis with lovenox. Discharge Planning dc to SNF this evening if urine output improves. see med list. f/u;pcp. d/w the RN. previously d/w the case management. time spent 35 min. See Casillas MD Mar 10, 2017 10:05
--- NOTE | 2017-03-10 10:06 | HHI.DCPOC ---
Discharge Care Plan Diagnosis: (1) Urinary tract infection Your Health Problems Are: Difficulty with ADL Goals to Promote Your Health * To prevent worsening of your condition and complications * To maintain your health at the optimal level Directions to Meet Your Goals Take your medications as prescribed Follow your dietary instruction Follow activity as directed Keep your appointments as scheduled Take your immunizations and boosters as scheduled If your symptoms worsen call your PCP, if no PCP go to Urgent Care Center or Emergency Room Smoking is Dangerous to Your Health. Avoid second hand smoke Call the 24-hour hour crisis hotline for domestic abuse at See Casillas MD Mar 10, 2017 10:06
--- NOTE | 2017-03-10 10:07 | HHI.DS ---
Discharge Summary Admission Date Mar 07, 2017 at 14:23 Discharge Date: Mar 10, 2017 Admitting Diagnosis Sepsis, UTI, Fall (1) Sepsis ICD Code: A41.9 Diagnosis: Principal (2) Fall ICD Code: W19.XXXA Diagnosis: Principal (3) Urinary tract infection ICD Code: N39.0 Diagnosis: Principal Procedures none Brief History - From Admission patient is a 76 y/o female with history of dementia,hypertension and COPD who was brought to ER after she fell at home. patient is not a good historian and most of the information was obtained from ER documents and caregiver. she reportedly fell at home earlier. there's no report of loss of consciousness. she was in no acute distress and denies any pain at the time of my evaluation. CBC/BMP: 03/09/17 0538 03/08/17 0421 Significant Findings Laboratory Tests Test 03/07/17 03/07/17 03/08/17 03/09/17 12:18 12:30 04:21 05:38 Prothrombin Time 12.4 SEC (9.8-11.6) Activated Partial 30.8 SEC Thromboplast Time (24.3-30.1) Potassium Level 3.3 MEQ/L 3.3 MEQ/L (3.5-5.1) (3.5-5.1) Estimat Glomerular Filtration 60 ML/MIN (>89) 74 ML/MIN (>89) Rate Random Glucose 123 MG/DL (74-106) Troponin I LESS THAN 0.02 NG/ML (0.02-0.05) Albumin 3.2 GM/DL (3.4-5.0) White Blood Count 21.0 TH/MM3 17.2 TH/MM3 13.4 TH/MM3 (4.0-11.0) (4.0-11.0) (4.0-11.0) Platelet Count 472 TH/MM3 457 TH/MM3 (150-450) (150-450) Neutrophils (%) (Auto) 86.7 % 80.2 % 76.7 % (16.0-70.0) (16.0-70.0) (16.0-70.0) Lymphocytes (%) (Auto) 6.7 % (9.0-44.0) Neutrophils # (Auto) 18.2 TH/MM3 13.8 TH/MM3 10.3 TH/MM3 (1.8-7.7) (1.8-7.7) (1.8-7.7) Monocytes # (Auto) 1.2 TH/MM3 (0-0.9) Urine Turbidity HAZY (CLEAR) Urine Protein 30 mg/dL (NEG-TRACE) Urine Occult Blood SMALL (NEG) Urine Leukocyte Esterase LARGE (NEG) Urine WBC Clumps MANY (NONE) Urine Bacteria MOD /hpf (NONE) Imaging Last Impressions Head CT 03/07/171126 Signed Impressions: Service Date/Time: Tuesday, March 07, 2017 11:41 - CONCLUSION: 1. No acute findings. White matter ischemic changes that have progressed since 2011. Yousif Israel MD Elbow X-Ray 03/07/171126 Signed Impressions: Service Date/Time: Tuesday, March 07, 2017 12:06 - CONCLUSION: 1. Osteopenia. No acute bony abnormality. Yousif Israel MD Chest X-Ray 03/07/171126 Signed Impressions: Service Date/Time: Tuesday, March 07, 2017 12:00 - CONCLUSION: 1. No acute findings. Mild hyperinflation. Yousif Israel MD Cervical Spine CT 03/07/171126 Signed Impressions: Service Date/Time: Tuesday, March 07, 2017 11:41 - CONCLUSION: 1. No acute fracture. Mild degenerative anterolisthesis at C3-4 with slight reversal of normal cervical lordosis. Yousif Israel MD PE at Discharge GENERAL: This is a well-nourished, well-developed patient, in no apparent distress. CARDIOVASCULAR: Regular rate and regular rhythm without murmurs, gallops, or rubs. RESPIRATORY: Clear to auscultation. Breath sounds equal bilaterally. No wheezes , rales, or rhonchi. GASTROINTESTINAL: Abdomen soft, non-tender, nondistended. Normal, active bowel sounds MUSCULOSKELETAL: Extremities without clubbing, cyanosis, or edema. NEURO: awake and alert. Moves all ext x4 Hospital Course - sepsis due to UTI continue with IV Rocephin- switch to po cipro upon discharge. urine culture with e-coli. leukocytosis improving- - fall- fall precautions- consulted PT - hypokalemia- replaced. -history of hypertension, COPD and dementia- resume home meds. -oliguria; start IV fluid and monitor the urine output -DVT prophylaxis with lovenox. Pt Condition on Discharge: Fair Discharge Disposition: Discharge to SNF Discharge Time: > 30 minutes Discharge Instructions DIET: Follow Instructions for: Heart Healthy Diet Activities you can perform: Regular-No Restrictions Follow up Referrals: PCP Follow-up New Medications: Ciprofloxacin (Cipro) 500 Mg Tab 500 MG PO BID Infection Days 5 Ref 0 TAB Walker Rolling/GetGo (Walker Rolling/GetGo) 1 Mis Mis 1 EA .ROUTE DIRECTED #1 EA Continued Medications: Amlodipine (Amlodipine) 5 Mg Tab 5 MG PO DAILY Blood Pressure Management #30 Ref 0 TAB Cholecalciferol (D3 Maximum Strength) 5,000 Unit Cap 5000 TAB PO DAILY Nutritional Supplement #30 Ref 0 CAP Fish Oil-Cholecalciferol (Ol[place]a-3 Fish Oil/Vitamin) 1,000-1,000 Mg Cap 1 CAP PO DAILY Nutritional Supplement Ref 0 CAP Lovastatin (Lovastatin) 20 Mg Tab 20 MG PO DAILY Cholesterol Management #30 Ref 0 TAB Memantine Er (Namenda Xr) 7 Mg Caper 7 MG PO DAILY Alzheimer Disease #30 Ref 0 CAP Multiple Vitamins W/ Minerals (One Daily-Minerals) 1 Tab 1 TAB PO DAILY #100 Ref 0 TAB Nutritional Supplements (Ensure Plus) 1 Liq Liq 1 BOTTLE PO TID See Casillas MD Mar 10, 2017 10:07
[2017-03-10 10:46] LABS: BICARBONATE 28.1 MEQ/L (21.0-32.0); POTASSIUM 3.6 MEQ/L (3.5-5.1)
[2017-03-10] MEDS: ENOXAPARIN SODIUM 40 MG/0.4 ML SYRINGE SQ SCH (11:39)
[2017-03-10 12:00] VITALS: BP 136/64; PULSE 90; RESP 15; TEMP 97.6; O2SAT 96
[2017-03-10] MEDS ORDERED: NUTRITIONAL SUPPLEMENTS PO SCH (13:00)
[2017-03-10] MEDS: cefTRIAXone INJ 2,000 MG in SODIUM CHLORIDE 0.9% INJ 100 ML IV SCH (14:51)
[2017-03-10 16:00] VITALS: BP 112/63; PULSE 89; RESP 15; TEMP 97.7; O2SAT 98
[2017-03-10 20:00] VITALS: BP 125/60; PULSE 85; RESP 16; TEMP 97; O2SAT 99
[2017-03-11] VITALS: BP 129/65; PULSE 88; RESP 16; TEMP 97.5; O2SAT 96
[2017-03-11 08:00] VITALS: BP 128/63; PULSE 77; RESP 16; TEMP 98.9; O2SAT 94
[2017-03-11] MEDS: amLODIPine BESYLATE 5 MG TAB PO SCH (09:32)
[2017-03-11] MEDS: MEMANTINE HCL 10 MG TAB PO SCH (09:32)
[2017-03-11] MEDS: PRAVASTATIN SOD 20 MG TAB PO SCH (09:32)
[2017-03-11] MEDS: ENOXAPARIN SODIUM 40 MG/0.4 ML SYRINGE SQ SCH (09:33)
[2017-03-11] MEDS: SODIUM CHLOR 0.9% 1000 ML INJ 1,000 ML IV SCH (09:33)
[2017-03-11 12:00] VITALS: BP 137/65; PULSE 81; RESP 16; TEMP 96.9; O2SAT 93
[2017-03-11] MEDS: cefTRIAXone INJ 2,000 MG in SODIUM CHLORIDE 0.9% INJ 100 ML IV SCH (12:28)
[2017-03-11 16:00] VITALS: BP 156/82; PULSE 88; RESP 16; TEMP 97.4; O2SAT 97
[2017-03-11 20:00] VITALS: BP 145/70; PULSE 94; RESP 20; TEMP 97.2; O2SAT 94
--- NOTE | 2017-03-11 21:26 | HHI.PR ---
Subjective Remarks Patient seen this morning. Has no complaints. Denies any pain. Objective Vital Signs Date Time Temp Pulse Resp B/P Pulse Ox O2 Delivery O2 Flow Rate FiO2 03/11/17 16:00 97.4 88 16 156/82 97 03/11/17 12:00 96.9 81 16 137/65 93 03/11/17 08:00 98.9 77 16 128/63 94 03/11/17 00:00 97.5 88 16 129/65 96 I/O 03/10/17 03/10/17 03/10/17 03/11/17 03/11/17 03/11/17 07:00 15:00 23:00 07:00 15:00 23:00 Intake Total 120 ml 962 ml 750 ml 762 ml 775 ml Output Total 375 ml 275 ml 450 ml Balance 120 ml 587 ml 475 ml 312 ml 775 ml Intake Oral 120 ml 480 ml 240 ml 120 ml 120 ml IV Total 482 ml 510 ml 642 ml 655 ml Output Urine Total 375 ml 275 ml 450 ml # Voids 0 1 2 # Bowel Movements 0 0 0 0 0 Result Diagram: 03/09/17 0538 03/10/17 1003 Objective Remarks GENERAL: patient sitting up in chair. Appears comfortable. SKIN: Warm and dry. HEAD: Normocephalic. EYES: No scleral icterus. No injection or drainage. NECK: Supple, trachea midline. No JVD. CARDIOVASCULAR: Regular rate and rhythm without murmurs, gallops, or rubs. RESPIRATORY: Breath sounds equal bilaterally. No accessory muscle use. GASTROINTESTINAL: Abdomen soft, non-tender, nondistended. MUSCULOSKELETAL: No cyanosis, or edema. BACK: Nontender without obvious deformity. No CVA tenderness. A/P Assessment and Plan =====03/11/17==== No acute changes. Renal function stable as of yesterday. Discussed with returned case inspector. Awaiting placement. -UTI. Repeat labs tomorrow. //sepsis due to UTI continue with IV Rocephin- switch to po cipro upon discharge. urine culture with e-coli. leukocytosis improving- // fall- fall precautions- consulted PT //hypokalemia- replaced. //history of hypertension, COPD and dementia-continue home meds. -oliguria; start IV fluid and monitor the urine output //DVT prophylaxis with lovenox. Discharge Planning awaiting placement Joey Mobley MD Mar 11, 2017 21:25
[2017-03-12] VITALS: BP 155/74; PULSE 95; RESP 20; TEMP 97.3; O2SAT 79
[2017-03-12 06:02] LABS: AUTOMATED NEUTROPHIL # 8.1 TH/MM3 (1.8-7.7); BASOPHIL # 0.1 TH/MM3 (0-0.2); BASOPHIL % 0.7 % (0.0-2.0); EOSINOPHIL # 0.1 TH/MM3 (0-0.4); EOSINOPHIL % 1.4 % (0.0-4.0); HEMATOCRIT 37.9 % (35.0-46.0); HEMO FLAGS DIFF FINAL; LYMPH % 14.7 % (9.0-44.0); LYMPHOCYTE # 1.6 TH/MM3 (1.0-4.8); MEAN CELL VOLUME 90.9 FL (80.0-100.0); MEAN CORPUSCULAR HEMOGLOBIN 30.4 PG (27.0-34.0); MEAN CORPUSCULAR HGB CONC 33.4 % (32.0-36.0); MONO % 6.8 % (0.0-8.0); NEUT % 76.4 % (16.0-70.0); PLATELET COUNT 384 TH/MM3 (150-450); RED BLOOD COUNT 4.17 MIL/MM3 (4.00-5.30); RED CELL DISTRIBUTION WIDTH 13.5 % (11.6-17.2); WHITE BLOOD COUNT 10.6 TH/MM3 (4.0-11.0)
[2017-03-12 06:27] LABS: BICARBONATE 25.8 MEQ/L (21.0-32.0); MAGNESIUM 1.7 MG/DL (1.5-2.5)
[2017-03-12 06:39] LABS: POTASSIUM 2.8 MEQ/L (3.5-5.1)
[2017-03-12] MEDS ORDERED: MAGNESIUM SULFATE 1 GM PREMIX 100 ML IV ONE ×2 (07:00→12:00)
[2017-03-12] MEDS ORDERED: POTASSIUM CHLORIDE 20 MEQ CONTROLLED RELEASE TAB PO ONE (07:00)
[2017-03-12 08:00] VITALS: BP 128/62; PULSE 81; RESP 20; TEMP 98.1; O2SAT 95
[2017-03-12] MEDS: POTASSIUM CHLOR 20 MEQ PREMIX 100 ML IV SCH ×2 (08:40→09:00)
[2017-03-12] MEDS: amLODIPine BESYLATE 5 MG TAB PO SCH (08:42)
[2017-03-12] MEDS: PRAVASTATIN SOD 20 MG TAB PO SCH (08:42)
[2017-03-12] MEDS: MEMANTINE HCL 10 MG TAB PO SCH (08:42)
[2017-03-12] MEDS: ENOXAPARIN SODIUM 40 MG/0.4 ML SYRINGE SQ SCH (11:00)
[2017-03-12 11:37] VITALS: BP 147/70; PULSE 110; RESP 19; TEMP 98.7; O2SAT 95
--- NOTE | 2017-03-12 11:43 | HHI.FF ---
Face to Face Verification Diagnosis: (1) Urinary tract infection (2) Fall (3) COPD (chronic obstructive pulmonary disease) (4) General weakness Physical Therapy Order: Evaluate and Treat Occupational Therapy Order: Evaluate and Treat Home Health Nursing Order: Nursing assessment with vital signs Instructions: Home health for medication management Home Health Aide Order: To Assist In: Bathing and personal care Store Clerk Checker Order: To Evaluate: Living conditions/environment, Support services I have seen patient Alecia Charles on 03/12/17. My clinical findings support the need for the requested home health care services because: Deconditioned w/ increased weakness Med compliance is questionable I certify that my clinical findings support that this patient is homebound because: Hx COPD- exertion dyspnea/weakness Unsafe to leave home unassisted Joey Mobley MD Mar 12, 2017 11:43
[2017-03-12] MEDS ORDERED: POTA-163 PO (11:44)
[2017-03-12] MEDS ORDERED: POTASSIUM CHLORIDE 10 MEQ CONTROLLED RELEASE TAB PO ONE (11:45)
[2017-03-12] MEDS: POTASSIUM CHLOR 10 MEQ PREMIX 100 ML IV SCH ×3 (13:00→14:00)
[2017-03-12] MEDS: SODIUM CHLOR 0.9% 1000 ML INJ 1,000 ML IV SCH ×2 (13:20)
[2017-03-12] MEDS: cefTRIAXone INJ 2,000 MG in SODIUM CHLORIDE 0.9% INJ 100 ML IV SCH (13:23)
[2017-03-12 15:58] VITALS: BP 125/58; PULSE 91; RESP 19; TEMP 98.8; O2SAT 96
[2017-03-12 20:00] VITALS: BP 151/67; PULSE 96; RESP 20; TEMP 98.6; O2SAT 96
--- NOTE | 2017-03-12 23:38 | HHI.PR ---
Subjective Remarks Patient seen this morning. says she feels comfortable. Denies any chest pain or shortness of breath. Objective Vital Signs Date Time Temp Pulse Resp B/P Pulse Ox O2 Delivery O2 Flow Rate FiO2 03/12/17 20:00 98.6 96 20 151/67 96 03/12/17 15:58 98.8 91 19 125/58 96 03/12/17 11:37 98.7 110 19 147/70 95 03/12/17 08:00 98.1 81 20 128/62 95 03/12/17 00:00 97.3 95 20 155/74 79 I/O 03/11/17 03/11/17 03/11/17 03/12/17 03/12/17 03/12/17 07:00 15:00 23:00 07:00 15:00 23:00 Intake Total 762 ml 775 ml 670 ml 792 ml 870 ml 0 ml Output Total 450 ml 900 ml 700 ml 1200 ml Balance 312 ml 775 ml -230 ml 92 ml -330 ml 0 ml Intake Oral 120 ml 120 ml 120 ml 120 ml 870 ml IV Total 642 ml 655 ml 550 ml 672 ml 0 ml Output Urine Total 450 ml 900 ml 700 ml 1200 ml # Voids 1 2 # Bowel Movements 0 0 0 0 Result Diagram: 03/12/17 0424 03/12/17 1529 Objective Remarks GENERAL: patient sitting up in chair. Appears comfortable.no change on exam. SKIN: Warm and dry. HEAD: Normocephalic. EYES: No scleral icterus. No injection or drainage. NECK: Supple, trachea midline. No JVD. CARDIOVASCULAR: Regular rate and rhythm without murmurs, gallops, or rubs. RESPIRATORY: Breath sounds equal bilaterally. No accessory muscle use. GASTROINTESTINAL: Abdomen soft, non-tender, nondistended. MUSCULOSKELETAL: No cyanosis, or edema. BACK: Nontender without obvious deformity. No CVA tenderness. A/P Assessment and Plan =====03/12/17==== hypokalemia 2.8 this morning. Resolved this afternoonafter replacement.. Renal function stable. -Discussed with case briefer. patient was to go home with family, however family reports that they do not have any power. Discharge held. //sepsis due to UTI continue with IV Rocephin- switch to po cipro upon discharge. urine culture with e-coli. leukocytosis improving- // fall- fall precautions- consulted PT //hypokalemia- replaced. //history of hypertension, COPD and dementia-continue home meds. -oliguria; start IV fluid and monitor the urine output //DVT prophylaxis with lovenox. Discharge Planning awaiting placement Joey Mobley MD Mar 12, 2017 23:38
[2017-03-13] VITALS: BP 129/63; PULSE 81; RESP 20; TEMP 98.6; O2SAT 95
[2017-03-13 05:55] LABS: AUTOMATED NEUTROPHIL # 7.6 TH/MM3 (1.8-7.7); BASOPHIL # 0.1 TH/MM3 (0-0.2); BASOPHIL % 0.6 % (0.0-2.0); EOSINOPHIL # 0.2 TH/MM3 (0-0.4); EOSINOPHIL % 1.8 % (0.0-4.0); HEMATOCRIT 34.3 % (35.0-46.0); HEMO FLAGS DIFF FINAL; LYMPHOCYTE # 2.2 TH/MM3 (1.0-4.8); MEAN CELL VOLUME 89.3 FL (80.0-100.0); MEAN CORPUSCULAR HGB CONC 33.6 % (32.0-36.0); MONO % 7.6 % (0.0-8.0); PLATELET COUNT 421 TH/MM3 (150-450); RED BLOOD COUNT 3.84 MIL/MM3 (4.00-5.30); RED CELL DISTRIBUTION WIDTH 14.1 % (11.6-17.2); WHITE BLOOD COUNT 10.9 TH/MM3 (4.0-11.0)
[2017-03-13 06:13] LABS: BICARBONATE 28.7 MEQ/L (21.0-32.0); MAGNESIUM 2.1 MG/DL (1.5-2.5); POTASSIUM 3.7 MEQ/L (3.5-5.1)
[2017-03-13] MEDS: SODIUM CHLOR 0.9% 1000 ML INJ 1,000 ML IV SCH (06:40)
[2017-03-13 08:00] VITALS: BP 127/58; PULSE 77; RESP 17; TEMP 97.4; O2SAT 94
[2017-03-13] MEDS: PRAVASTATIN SOD 20 MG TAB PO SCH (08:53)
[2017-03-13] MEDS: amLODIPine BESYLATE 5 MG TAB PO SCH (08:53)
[2017-03-13] MEDS: MEMANTINE HCL 10 MG TAB PO SCH (08:53)
[2017-03-13] MEDS: ENOXAPARIN SODIUM 40 MG/0.4 ML SYRINGE SQ SCH (11:33)
[2017-03-13 12:00] VITALS: BP 106/51; PULSE 79; RESP 17; TEMP 96.8; O2SAT 96
[2017-03-13] MEDS: cefTRIAXone INJ 2,000 MG in SODIUM CHLORIDE 0.9% INJ 100 ML IV SCH (13:55)
--- NOTE | 2017-03-13 15:23 | HHI.PR ---
Subjective Remarks Patient seen around noon. says she feelw well. no CP or sob. Objective Vital Signs Date Time Temp Pulse Resp B/P Pulse Ox O2 Delivery O2 Flow Rate FiO2 03/13/17 15:16 03/13/17 12:00 96.8 79 17 106/51 96 03/13/17 08:00 97.4 77 17 127/58 94 03/13/17 00:00 98.6 81 20 129/63 95 03/12/17 20:00 98.6 96 20 151/67 96 03/12/17 15:58 98.8 91 19 125/58 96 I/O 03/12/17 03/12/17 03/12/17 03/13/17 03/13/17 03/13/17 07:00 15:00 23:00 07:00 15:00 23:00 Intake Total 792 ml 870 ml 120 ml 0 ml 1145 ml Output Total 700 ml 1200 ml 1700 ml 600 ml 450 ml Balance 92 ml -330 ml -1580 ml -600 ml 695 ml Intake Oral 120 ml 870 ml 120 ml 0 ml 520 ml IV Total 672 ml 0 ml 0 ml 625 ml Output Urine Total 700 ml 1200 ml 1700 ml 600 ml 450 ml Stool Total 0 ml # Bowel Movements 0 0 Result Diagram: 03/13/17 0455 03/13/17 0458 Objective Remarks GENERAL: patient sitting up in chair. Appears comfortable. again no change SKIN: Warm and dry. HEAD: Normocephalic. EYES: No scleral icterus. No injection or drainage. NECK: Supple, trachea midline. No JVD. CARDIOVASCULAR: Regular rate and rhythm without murmurs, gallops, or rubs. RESPIRATORY: Breath sounds equal bilaterally. No accessory muscle use. GASTROINTESTINAL: Abdomen soft, non-tender, nondistended. MUSCULOSKELETAL: No cyanosis, or edema. BACK: Nontender without obvious deformity. No CVA tenderness. A/P Assessment and Plan =====03/13/17==== d/w nursing, good appetite. dc ivf. switch to Po Cipro. QTC 430s no most recent EKG reviewed. hypokalemia resolved. 3.7 today. Renal function stable. - family reports that they do not have any power. Discharge pending safe dc plans. //sepsis due to UTI continue with IV Rocephin- switch to po cipro upon discharge. urine culture with e-coli. leukocytosis resolved.- // fall- fall precautions- PT ff //hypokalemia- currently resolved. following //history of hypertension, COPD and dementia-continue home meds. //oliguria: resolved //DVT prophylaxis with lovenox. Discharge Planning - family reports that they do not have any power. Discharge pending safe dc plans. Joey Mobley MD Mar 13, 2017 15:23
[2017-03-13 16:00] VITALS: BP 116/57; PULSE 105; RESP 18; TEMP 98.1; O2SAT 95
[2017-03-13 20:00] VITALS: BP 131/62; PULSE 103; RESP 20; TEMP 97.7; O2SAT 97
[2017-03-13] MEDS: CIPROFLOXACIN 250 MG TAB PO SCH (21:31)
[2017-03-14] VITALS: BP 121/67; PULSE 70; RESP 20; TEMP 98.8; O2SAT 94
[2017-03-14 05:33] LABS: BICARBONATE 32.1 MEQ/L (21.0-32.0); MAGNESIUM 2.1 MG/DL (1.5-2.5); POTASSIUM 3.9 MEQ/L (3.5-5.1)
[2017-03-14 08:00] VITALS: BP 105/59; PULSE 83; RESP 17; TEMP 97.8; O2SAT 93
[2017-03-14] MEDS: amLODIPine BESYLATE 5 MG TAB PO SCH (10:01)
[2017-03-14] MEDS: ENOXAPARIN SODIUM 40 MG/0.4 ML SYRINGE SQ SCH (10:01)
[2017-03-14] MEDS: MEMANTINE HCL 10 MG TAB PO SCH (10:02)
[2017-03-14] MEDS: PRAVASTATIN SOD 20 MG TAB PO SCH (10:02)
[2017-03-14] MEDS: CIPROFLOXACIN 250 MG TAB PO SCH ×2 (10:02→20:30)
[2017-03-14 12:00] VITALS: BP 139/58; PULSE 88; RESP 17; TEMP 96.5; O2SAT 96
[2017-03-14 16:00] VITALS: BP 124/57; PULSE 99; RESP 17; TEMP 98.9; O2SAT 95
--- NOTE | 2017-03-14 17:29 | HHI.PR ---
Subjective Remarks Patient seen around 11 AM. Says she is feeling well. Denies any chest pain or shortness of breath. Denies any dysuria. Objective Vital Signs Date Time Temp Pulse Resp B/P Pulse Ox O2 Delivery O2 Flow Rate FiO2 03/14/17 16:00 98.9 99 17 124/57 95 03/14/17 12:00 96.5 88 17 139/58 96 03/14/17 08:00 97.8 83 17 105/59 93 03/14/17 00:00 98.8 70 20 121/67 94 03/13/17 20:00 97.7 103 20 131/62 97 I/O 03/13/17 03/13/17 03/13/17 03/14/17 03/14/17 03/14/17 07:00 15:00 23:00 07:00 15:00 23:00 Intake Total 0 ml 1145 ml 220 ml 240 ml Output Total 600 ml 450 ml 200 ml Balance -600 ml 695 ml 20 ml 240 ml Intake Oral 0 ml 520 ml 220 ml 240 ml IV Total 0 ml 625 ml Output Urine Total 600 ml 450 ml 200 ml # Voids 1 # Bowel Movements 0 0 1 Result Diagram: 03/13/17 0455 03/14/17 0454 Objective Remarks GENERAL: patient sitting up in bed. Appears comfortable. otherwise no appreciable change on exam. SKIN: Warm and dry. HEAD: Normocephalic. EYES: No scleral icterus. No injection or drainage. NECK: Supple, trachea midline. No JVD. CARDIOVASCULAR: Regular rate and rhythm without murmurs, gallops, or rubs. RESPIRATORY: Breath sounds equal bilaterally. No accessory muscle use. GASTROINTESTINAL: Abdomen soft, non-tender, nondistended. MUSCULOSKELETAL: No cyanosis, or edema. BACK: Nontender without obvious deformity. No CVA tenderness. A/P Assessment and Plan =====03/14/17==== -good by mouth intake.advise nursing to open patient's ensure for her. continue by mouth Cipro was stopped date of 03/18. No lights on at homecan't be discharged home appreciate case management assistance. //sepsis due to UTI continue with IV Rocephin- switch to po cipro upon discharge. urine culture with e-coli. leukocytosis resolved.- // fall- fall precautions- PT ff //hypokalemia- currently resolved. following //history of hypertension, COPD and dementia-continue home meds. //oliguria: resolved //DVT prophylaxis with lovenox. Discharge Planning - family reports that they do not have any power. Discharge pending safe dc plans. Joey Mobley MD Mar 14, 2017 17:29
[2017-03-14 20:00] VITALS: BP 130/62; PULSE 62; RESP 18; TEMP 96.8; O2SAT 98
[2017-03-14 23:30] VITALS: BP 116/56; PULSE 87; RESP 18; TEMP 98.1; O2SAT 94
[2017-03-15 06:37] LABS: BICARBONATE 32.9 MEQ/L (21.0-32.0); POTASSIUM 3.8 MEQ/L (3.5-5.1)
[2017-03-15 08:00] VITALS: BP 105/55; PULSE 82; RESP 16; TEMP 98.3; O2SAT 92
[2017-03-15] MEDS: amLODIPine BESYLATE 5 MG TAB PO SCH (09:00)
[2017-03-15] MEDS: PRAVASTATIN SOD 20 MG TAB PO SCH (09:23)
[2017-03-15] MEDS: MEMANTINE HCL 10 MG TAB PO SCH (09:23)
[2017-03-15] MEDS: CIPROFLOXACIN 250 MG TAB PO SCH (09:25)
[2017-03-15 12:00] VITALS: BP 105/54; PULSE 85; RESP 16; TEMP 96.2; O2SAT 96
[2017-03-15] MEDS: ENOXAPARIN SODIUM 40 MG/0.4 ML SYRINGE SQ SCH (12:11)
--- NOTE | 2017-03-18 16:10 | HHI.DS ---
Discharge Summary Admission Date Mar 07, 2017 at 14:23 Discharge Date: Mar 15, 2017 Admitting Diagnosis Sepsis, UTI, Fall (1) Sepsis ICD Code: A41.9 Diagnosis: Principal (2) Fall ICD Code: W19.XXXA Diagnosis: Principal (3) Urinary tract infection ICD Code: N39.0 Diagnosis: Principal Procedures none Brief History - From Admission patient is a 76 y/o female with history of dementia,hypertension and COPD who was brought to ER after she fell at home. patient is not a good historian and most of the information was obtained from ER documents and caregiver. she reportedly fell at home earlier. there's no report of loss of consciousness. she was in no acute distress and denies any pain at the time of my evaluation. CBC/BMP: 03/15/17 0449 Imaging Last Impressions Head CT 03/07/171126 Signed Impressions: Service Date/Time: Tuesday, March 07, 2017 11:41 - CONCLUSION: 1. No acute findings. White matter ischemic changes that have progressed since 2011. Yousif Israel MD Elbow X-Ray 03/07/171126 Signed Impressions: Service Date/Time: Tuesday, March 07, 2017 12:06 - CONCLUSION: 1. Osteopenia. No acute bony abnormality. Yousif Israel MD Chest X-Ray 03/07/171126 Signed Impressions: Service Date/Time: Tuesday, March 07, 2017 12:00 - CONCLUSION: 1. No acute findings. Mild hyperinflation. Yousif Israel MD Cervical Spine CT 03/07/171126 Signed Impressions: Service Date/Time: Tuesday, March 07, 2017 11:41 - CONCLUSION: 1. No acute fracture. Mild degenerative anterolisthesis at C3-4 with slight reversal of normal cervical lordosis. Yousif Israel MD PE at Discharge GENERAL: This is a well-nourished, well-developed patient, in no apparent distress. CARDIOVASCULAR: Regular rate and regular rhythm without murmurs, gallops, or rubs. RESPIRATORY: Clear to auscultation. Breath sounds equal bilaterally. No wheezes , rales, or rhonchi. GASTROINTESTINAL: Abdomen soft, non-tender, nondistended. Normal, active bowel sounds MUSCULOSKELETAL: Extremities without clubbing, cyanosis, or edema. NEURO: awake and alert. Moves all ext x4 Hospital Course =====03/14/17==== -good by mouth intake.advise nursing to open patient's ensure for her. continue by mouth Cipro was stopped date of 03/18. No lights on at homecan't be discharged home appreciate case management assistance. //sepsis due to UTI continue with IV Rocephin- switch to po cipro upon discharge. urine culture with e-coli. leukocytosis resolved.- // fall- fall precautions- PT ff //hypokalemia- currently resolved. following //history of hypertension, COPD and dementia-continue home meds. //oliguria: resolved //DVT prophylaxis with lovenox. Discharge Planning - family reports that they do not have any power. Discharge pending safe dc plans. Pt Condition on Discharge: Stable Discharge Disposition: Disch w/ Home Health Serv Discharge Time: > 30 minutes Discharge Instructions DIET: Follow Instructions for: Heart Healthy Diet Activities you can perform: Regular-No Restrictions Follow up Referrals: PCP Follow-up PCP Follow-up New Orders: COMP MET PROF (CMP) - 3-5 Days New Medications: Ciprofloxacin (Cipro) 500 Mg Tab 500 MG PO BID Infection Days 5 Ref 0 TAB Potassium Chloride ER (Potassium Chloride ER) 20 Meq Tab 20 MEQ PO DAILY Electrolyte Replacement #30 Ref 0 TAB Walker Rolling/GetGo (Walker Rolling/GetGo) 1 Mis Mis 1 EA .ROUTE DIRECTED #1 EA Continued Medications: Amlodipine (Amlodipine) 5 Mg Tab 5 MG PO DAILY Blood Pressure Management #30 Ref 0 TAB Cholecalciferol (D3 Maximum Strength) 5,000 Unit Cap 5000 TAB PO DAILY Nutritional Supplement #30 Ref 0 CAP Fish Oil-Cholecalciferol ([place]-3 Fish Oil/Vitamin) 1,000-1,000 Mg Cap 1 CAP PO DAILY Nutritional Supplement Ref 0 CAP Lovastatin (Lovastatin) 20 Mg Tab 20 MG PO DAILY Cholesterol Management #30 Ref 0 TAB Memantine Er (Namenda Xr) 7 Mg Caper 7 MG PO DAILY Alzheimer Disease #30 Ref 0 CAP Multiple Vitamins W/ Minerals (One Daily-Minerals) 1 Tab 1 TAB PO DAILY #100 Ref 0 TAB Nutritional Supplements (Ensure Plus) 1 Liq Liq 1 BOTTLE PO TID Joey Mobley MD Mar 18, 2017 16:10
== END 2017-03-15 15:09 | disposition home or self-care (01) ==
LOC: NEPE 11:08 → NEDA 14:23 → INTOOBSV 14:23 → N07A 15:30
PROVIDERS: ADMIT Internal Medicine; ATTEND Internal Medicine
DX: A41.9 Sepsis, unspecified organism (principal); N39.0 Urinary tract infection, site not specified; B96.20 Unspecified Escherichia coli [E. coli] as the cause of diseases classified elsewhere; E43 Unspecified severe protein-calorie malnutrition; I10 Essential (primary) hypertension; J44.9 Chronic obstructive pulmonary disease, unspecified; F03.90 Unspecified dementia, unspecified severity, without behavioral disturbance, psychotic disturbance, mood disturbance, and anxiety; D72.829 Elevated white blood cell count, unspecified; E87.6 Hypokalemia; E78.00 Pure hypercholesterolemia, unspecified; R34 Anuria and oliguria; M19.049 Primary osteoarthritis, unspecified hand; R94.31 Abnormal electrocardiogram [ECG] [EKG]; Z23 Encounter for immunization; Z91.81 History of falling; Z79.899 Other long term (current) drug therapy; Z87.891 Personal history of nicotine dependence; W19.XXXA Unspecified fall, initial encounter; Y92.009 Unspecified place in unspecified non-institutional (private) residence as the place of occurrence of the external cause
CPT/HCPCS: 70450; 71010; 72125; 73080; 80048; 80053; 80069; 81001; 82550; 83605; 83735; 84132; 84484; 85025; 85610; 85730; 87040; 87077; 87086; 87186; 90471; 90714; 93005; 96360; 97110; 97116; 97162; 97530; 99285; G0378; J0696; J1650; J3475; J3480; J7030; J7040; P9612; 96372

== ENCOUNTER 2017-03-26 17:55 | Inpatient (IN) | payer OTHER, MEDICARE ==
[~2017-03-26] VITALS: Ht 162.6 cm; Wt 38.8 kg
[~2017-03-26 17:55] MED LIST changes: +AMLO5TAB2 PO; +CHOL1CAP14 PO; -CHOL50006 PO; +CIPR-9 PO; -DICY1TAB26 PO; +ENSULIQ8 PO; -FAMO20 PO; +GETGO ROLLING W1 MI1; -HYDR-2768 PO; +MEMA7CAP PO; +OMEGCAP PO; +ONETAB22 PO; +POTA-163 PO; -ZOFR4TAB3 SL
[2017-03-26 18:19] VITALS: BP 141/65; PULSE 73; RESP 16; TEMP 98.7; O2SAT 96
[2017-03-26 19:57] VITALS: BP 134/63; PULSE 80; RESP 18; O2SAT 98
[2017-03-26 19:59] LABS: AUTOMATED NEUTROPHIL # 4.8 TH/MM3 (1.8-7.7); BASOPHIL % 0.6 % (0.0-2.0); EOSINOPHIL # 0.2 TH/MM3 (0-0.4); EOSINOPHIL % 2.7 % (0.0-4.0); HEMATOCRIT 41.1 % (35.0-46.0); HEMO FLAGS DIFF FINAL; LYMPH % 25.6 % (9.0-44.0); LYMPHOCYTE # 1.9 TH/MM3 (1.0-4.8); MEAN CELL VOLUME 91.6 FL (80.0-100.0); MEAN CORPUSCULAR HEMOGLOBIN 30.6 PG (27.0-34.0); MEAN CORPUSCULAR HGB CONC 33.4 % (32.0-36.0); MONO % 6.1 % (0.0-8.0); PLATELET COUNT 352 TH/MM3 (150-450); RED BLOOD COUNT 4.49 MIL/MM3 (4.00-5.30); RED CELL DISTRIBUTION WIDTH 14.9 % (11.6-17.2); WHITE BLOOD COUNT 7.4 TH/MM3 (4.0-11.0)
[2017-03-26 20:14] LABS: BLOOD, URINE NEG (NEG); COMMENT (UR) CULTURE INDICATED; CULTURE IF INDICATED CULTURE INDICATED; GLUCOSE,URINE NEG (NEG); KETONE, URINE NEG (NEG); NITRITE,URINE NEG (NEG); PH, URINE 7.5 (5.0-8.5); URINE COLOR YELLOW (YELLW/STRAW)
[2017-03-26] MEDS ORDERED: SODIUM CHLOR 0.9% 1000 ML INJ 1,000 ML IV ONE (21:00)
[2017-03-26] MEDS ORDERED: cefTRIAXone INJ 1,000 MG in SODIUM CHLORIDE 0.9% INJ 100 ML IV ONE (21:00)
[2017-03-26 21:12] LABS: ANION GAP 7 MEQ/L (5-15); AST (GOT) 26 U/L (15-37); BLOOD UREA NITROGEN 17 MG/DL (7-18); CHLORIDE 105 MEQ/L (98-107); GLOMERULAR FILTRATION RATE 59 ML/MIN (>89); SODIUM (NA) 140 MEQ/L (136-145)
[2017-03-26 21:16] LABS: ALKALINE PHOSPHATASE 108 U/L (45-117); ALT (GPT) 21 U/L (10-53); TOTAL BILIRUBIN ADULT 0.4 MG/DL (0.2-1.0)
--- NOTE | 2017-03-26 21:18 | RADRPT ---
EXAM DATE/TIME: 03/26/2017 20:52 [facility] COMPARISON: CHEST SINGLE AP, March 07, 2017, 12:00. INDICATIONS : Cough. MEDICAL HISTORY : None. SURGICAL HISTORY : None. ENCOUNTER: Initial ACUITY: 1 day PAIN SCORE: Non-responsive. LOCATION: Bilateral chest FINDINGS: A single view of the chest demonstrates the lungs to be symmetrically aerated without evidence of mas s, infiltrate or effusion. The cardiomediastinal contours are unremarkable. Osseous structures are intact. CONCLUSION: No acute disease. Igor Wilson MD FACR on March 26, 2017 at 21:16 Board Certified Radiologist. This report was verified electronically.
--- NOTE | 2017-03-26 23:26 | PD ---
HPI Chief Complaint: Altered Mental Status Time Seen by Provider: 19:53 Travel History International Travel<30 days: No Contact w/Intl Traveler<30days: No Traveled to known affect area: No History of Present Illness HPI Patient is a 76-year-old female brought in by her son due to altered mental status. Patient was here 2 weeks ago and was diagnosed with the UTI, but her son never filled her antibiotic prescription. Son states she has been slowly getting more altered. Patient is not able to provide any history. PFSH Past Medical History Arthritis: Yes (HANDS) Asthma: No Blood Disorders: No Heart Rhythm Problems: No Cancer: No Cardiac Catheterization: No Cardiovascular Problems: Yes High Cholesterol: Yes Chest Pain: No Congestive Heart Failure: No COPD: No Cerebrovascular Accident: No Dementia: Yes Diabetes: No Diminished Hearing: No Endocrine: No GERD: No Genitourinary: No Hiatal Hernia: No Hypertension: Yes Immune Disorder: No Implanted Vascular Access Dvce: No Kidney Stones: No Musculoskeletal: Yes Neurologic: Yes Psychiatric: No Reproductive: No Respiratory: No Migraines: No Renal Failure: No Seizures: No Sleep Apnea: No Thyroid Disease: No Ulcer: No Tetanus Vaccination: < 5 Years Menopausal: Yes : 3 Para: 2 : 1 Ovarian Cysts: Yes Past Surgical History AICD: No Appendectomy: Yes Arteriovenous Shunt: No Coronary Artery Bypass Graft: No Hysterectomy: Yes Insulin Pump: No Joint Replacement: No Pacemaker: No Tonsillectomy: Yes Other Surgery: Yes Social History Alcohol Use: No Tobacco Use: Yes (1/2 PPD) Substance Use: No Allergies-Medications (Allergen,Severity, Reaction): Coded Allergies: No Known Allergies (Verified , 03/26/17) Reported Meds & Prescriptions Reported Meds & Active Scripts Active Potassium Chloride ER (Potassium Chloride) 20 Meq Tab 20 Meq PO DAILY Walker Rolling/GetGo (Device) 1 Mis Mis 1 Ea .ROUTE DIRECTED Cipro (Ciprofloxacin HCl) 500 Mg Tab 500 Mg PO BID 5 Days Reported Ensure Plus (Nutritional Supplements) 1 Liq Liq 1 Bottle PO TID Lovastatin 20 Mg Tab 20 Mg PO DAILY Namenda Xr (Memantine) 7 Mg Caper 7 Mg PO DAILY [place]-3 Fish Oil/Vitamin (Fish Oil-Cholecalciferol) 1,000-1,000 Mg Cap 1 Cap PO DAILY D3 Maximum Strength (Cholecalciferol) 5,000 Unit Cap 5,000 Tab PO DAILY One Daily-Minerals (Multiple Vitamins W/ Minerals) 1 Tab 1 Tab PO DAILY Amlodipine (Amlodipine Besylate) 5 Mg Tab 5 Mg PO DAILY Review of Systems ROS Limitations: Clinical Condition, Altered Mental Status Physical Exam Narrative GENERAL: Awake and alert, in no acute distress. SKIN: Focused skin assessment warm/dry. HEAD: Atraumatic. Normocephalic. EYES: Pupils equal and round. No scleral icterus. ENT: Mucous membranes pink and moist. NECK: Trachea midline. No JVD. CARDIOVASCULAR: Regular rate and rhythm. No murmur appreciated. RESPIRATORY: No accessory muscle use. Clear to auscultation. Breath sounds equal bilaterally. GASTROINTESTINAL: Abdomen soft, non-tender, nondistended. MUSCULOSKELETAL: No obvious deformities. No clubbing. No cyanosis. No edema. NEUROLOGICAL: Awake and alert oriented to person only. No obvious cranial nerve deficits. Motor grossly within normal limits. Normal speech. Data Data Last Documented VS Vital Signs Date Time Temp Pulse Resp B/P Pulse Ox O2 Delivery O2 Flow Rate FiO2 03/26/17 19:57 80 18 134/63 98 Room Air 03/26/17 18:19 98.7 Orders Blood Glucose (03/26/17 18:53) Oximetry (03/26/17 18:53) Iv Access Insert/Monitor (03/26/17 18:53) Ecg Monitoring (03/26/17 18:53) Oxygen Administration (03/26/17 18:53) Complete Blood Count With Diff (03/26/17 18:53) Urinalysis - C+S If Indicated (03/26/17 18:53) Comprehensive Metabolic Panel (03/26/17 19:03) Urine Culture (03/26/17 19:49) Lactic Acid (03/26/17 20:48) Chest, Single Ap (03/26/17 ) Sodium Chlor 0.9% 1000 Ml Inj (Ns 1000 M (03/26/17 21:00) Ceftriaxone Inj (Rocephin Inj) (03/26/17 21:00) Admit Order (Ed Use Only) (03/26/17 ) Labs Laboratory Tests Test 03/26/17 03/26/17 03/26/17 19:04 19:49 21:13 White Blood Count 7.4 TH/MM3 Red Blood Count 4.49 MIL/MM3 Hemoglobin 13.7 GM/DL Hematocrit 41.1 % Mean Corpuscular Volume 91.6 FL Mean Corpuscular Hemoglobin 30.6 PG Mean Corpuscular Hemoglobin 33.4 % Concent Red Cell Distribution Width 14.9 % Platelet Count 352 TH/MM3 Mean Platelet Volume 9.9 FL Neutrophils (%) (Auto) 65.0 % Lymphocytes (%) (Auto) 25.6 % Monocytes (%) (Auto) 6.1 % Eosinophils (%) (Auto) 2.7 % Basophils (%) (Auto) 0.6 % Neutrophils # (Auto) 4.8 TH/MM3 Lymphocytes # (Auto) 1.9 TH/MM3 Monocytes # (Auto) 0.5 TH/MM3 Eosinophils # (Auto) 0.2 TH/MM3 Basophils # (Auto) 0.0 TH/MM3 CBC Comment DIFF FINAL Differential Comment Sodium Level 140 MEQ/L Potassium Level 4.0 MEQ/L Chloride Level 105 MEQ/L Carbon Dioxide Level 28.0 MEQ/L Anion Gap 7 MEQ/L Blood Urea Nitrogen 17 MG/DL Creatinine 0.93 MG/DL Estimat Glomerular Filtration 59 ML/MIN Rate Random Glucose 89 MG/DL Calcium Level 9.5 MG/DL Total Bilirubin 0.4 MG/DL Aspartate Amino Transf 26 U/L (AST/SGOT) Alanine Aminotransferase 21 U/L (ALT/SGPT) Alkaline Phosphatase 108 U/L Total Protein 8.0 GM/DL Albumin 3.8 GM/DL Total Creatine Kinase 51 U/L Troponin I 0.10 NG/ML Urine Color YELLOW Urine Turbidity HAZY Urine pH 7.5 Urine Specific [place] 1.015 Urine Protein TRACE mg/dL Urine Glucose (UA) NEG mg/dL Urine Ketones NEG mg/dL Urine Occult Blood NEG Urine Nitrite NEG Urine Bilirubin NEG Urine Urobilinogen LESS THAN 2.0 MG/DL Urine Leukocyte Esterase LARGE Urine WBC 24 /hpf Urine Amorphous Sediment RARE Microscopic Urinalysis Comment CULTURE INDICATED Lactic Acid Level 1.3 mmol/L MDM Medical Decision Making Medical Screen Exam Complete: Yes Emergency Medical Condition: Yes Medical Record Reviewed: Yes Differential Diagnosis UTI versus pneumonia versus electrolyte abnormality Narrative Course Patient is a 76-year-old female comes in due to altered mental status. Exam shows patient oriented to only person. IV established, labs sent. Urinalysis is positive for UTI. Patient given Rocephin. Place observation for further management. Diagnosis Primary Impression: Urinary tract infection Qualified Code: N30.00 - Acute cystitis without hematuria Admitting Information Admitting Physician Requests: Observation Condition: Stable Jania Jaeger MD Mar 26, 2017 23:26
[2017-03-26] MEDS ORDERED: SENNOSIDES 8.6 MG TAB PO PRN (23:45)
[2017-03-26] MEDS ORDERED: NALOXONE HCL 0.4 MG/ML AMP IV PRN (23:45)
[2017-03-26] MEDS ORDERED: MAGNESIUM HYDROXIDE SUSP 30 ML CUP PO PRN (23:45)
[2017-03-26] MEDS ORDERED: ACETAMINOPHEN 325 MG TAB PO PRN (23:45)
[2017-03-26] MEDS ORDERED: BISACODYL 10 MG SUPP RECTAL PRN (23:45)
[2017-03-26] MEDS ORDERED: LACTULOSE SYRUP 20 GM/30 ML CUP PO PRN (23:45)
[2017-03-26] MEDS ORDERED: SODIUM CHLORIDE 0.9% FLUSH 10 ML FLUSH IV FLUSH PRN (23:45)
[2017-03-26] MEDS ORDERED: ONDANSETRON HCL 4 MG/2 ML VIAL IVP PRN (23:45)
[2017-03-27] VITALS (8 sets, daily range): BP systolic 124–160; BP diastolic 58–87; PULSE 68–105; RESP 15–18; TEMP 97.7–98.5; O2SAT 90–100
--- NOTE | 2017-03-27 02:36 | HHI.HP ---
HPI Service [facility] Primary Care Physician Unknown Admission Diagnosis UTI, AMS Diagnoses: Chief Complaint: AMS Travel History International Travel<30 Days: No Contact w/Intl Traveler <30 Da: No Traveled to Known Affected Are: No History of Present Illness Written by STEWART Lassiter acting as scribe for Dr. Francis] on 03/27/17 at 02:34. 76 y/o female with a history of dementia, HTN, COPD and dyslipidemia who is also a poor historian was brought to the ED with AMS. She is oriented to self and city, but she is unable to tell you the year and her medical history. She states she feels fine, denies any chest pain, shortness of breath, fever or chills. There is no family or caregiver at bedside for questioning. EMR was reviewed for medical and surgical history. Patient was recently admitted on March 07 for sepsis related to a UTI. Escherichia coli was found in her urine. She was treated with IV Rocephin and switched to ciprofloxacin on discharge. Review of Systems ROS Limitations: Poor Historian Constitutional: DENIES: Fever, Chills Respiratory: DENIES: Cough, Shortness of breath Cardiovascular: DENIES: Chest pain, Lower Extremity Edema Gastrointestinal: DENIES: Diarrhea, Nausea, Vomiting Genitourinary: DENIES: Hematuria, Dysuria Musculoskeletal: DENIES: Back pain, Neck pain Integumentary: DENIES: Rash Hematologic/lymphatic: DENIES: Lymphadenopathy Neurologic: DENIES: Headache Past Family Social History Past Medical History Dementia Hypertension Dyslipidemia Past Surgical History Appendectomy Reported Medications Reported Meds & Active Scripts Active Potassium Chloride ER (Potassium Chloride) 20 Meq Tab 20 Meq PO DAILY Walker Rolling/GetGo (Device) 1 Mis Mis 1 Ea .ROUTE DIRECTED Cipro (Ciprofloxacin HCl) 500 Mg Tab 500 Mg PO BID 5 Days Reported Ensure Plus (Nutritional Supplements) 1 Liq Liq 1 Bottle PO TID Lovastatin 20 Mg Tab 20 Mg PO DAILY Namenda Xr (Memantine) 7 Mg Caper 7 Mg PO DAILY [place]wick-3 Fish Oil/Vitamin (Fish Oil-Cholecalciferol) 1,000-1,000 Mg Cap 1 Cap PO DAILY D3 Maximum Strength (Cholecalciferol) 5,000 Unit Cap 5,000 Tab PO DAILY One Daily-Minerals (Multiple Vitamins W/ Minerals) 1 Tab 1 Tab PO DAILY Amlodipine (Amlodipine Besylate) 5 Mg Tab 5 Mg PO DAILY Allergies: Coded Allergies: No Known Allergies (Verified , 03/26/17) Active Ordered Medications Current Medications Medications (Trade) Dose Ordered Sig/Fredi Route Start Time Stop Time Status Last Admin (NS Flush) 2 ml UNSCH PRN IV FLUSH 03/26/17 23:45 (NS Flush) 2 ml BID IV FLUSH 03/27/17 09:00 (Tylenol) 650 mg Q4H PRN PO 03/26/17 23:45 (Zofran Inj) 4 mg Q6H PRN IVP 03/26/17 23:45 (Narcan Inj) 0.4 mg UNSCH PRN IV 03/26/17 23:45 (Milk Of Magnesia Liq) 30 ml Q12H PRN PO 03/26/17 23:45 (Senokot) 17.2 mg Q12H PRN PO 03/26/17 23:45 (Dulcolax Supp) 10 mg DAILY PRN RECTAL 03/26/17 23:45 Lactulose 30 ml 30 ml DAILY PRN PO 03/26/17 23:45 (Rocephin Inj/NS Inj) 100 ml @ 200 mls/hr Q24H IV 03/27/17 21:00 Family History Patient is a poor historian and family history is unknown Social History Patient denies any tobacco, alcohol or illicit drug use Physical Exam Vital Signs Vital Signs Date Time Temp Pulse Resp B/P Pulse Ox O2 Delivery O2 Flow Rate FiO2 03/27/17 02:20 68 18 147/87 100 Room Air 03/27/17 00:09 84 18 145/83 97 Room Air 03/27/17 00:09 97 Room Air 03/27/17 00:09 98 Room Air 03/26/17 19:57 80 18 134/63 98 Room Air 03/26/17 18:19 98.7 73 16 141/65 96 Physical Exam GENERAL: This is a well-nourished, well-developed patient, in no apparent distress. SKIN: No rashes, ecchymoses or lesions. Cool and dry. HEAD: Atraumatic. Normocephalic. EYES: Pupils equal round and reactive. Extraocular motions intact. ENT: Nose without bleeding, purulent drainage or septal hematoma. Throat without erythema, tonsillar hypertrophy or exudate. Airway patent. NECK: Trachea midline. No JVD or lymphadenopathy. CARDIOVASCULAR: Regular rate and rhythm without murmurs, gallops, or rubs. RESPIRATORY: Clear to auscultation. Breath sounds equal bilaterally. No wheezes , rales, or rhonchi. GASTROINTESTINAL: Abdomen soft, non-tender, nondistended. No hepato-splenomegaly , or palpable masses. No guarding. MUSCULOSKELETAL: Extremities without clubbing, cyanosis, or edema. No joint tenderness, effusion, or edema noted. No calf tenderness. NEUROLOGICAL: Awake and oriented 2. Motor and sensory grossly within normal limits. Normal speech. Laboratory Laboratory Tests Test 03/26/17 03/26/17 03/26/17 19:04 19:49 21:13 White Blood Count 7.4 Red Blood Count 4.49 Hemoglobin 13.7 Hematocrit 41.1 Mean Corpuscular Volume 91.6 Mean Corpuscular Hemoglobin 30.6 Mean Corpuscular Hemoglobin 33.4 Concent Red Cell Distribution Width 14.9 Platelet Count 352 Mean Platelet Volume 9.9 Neutrophils (%) (Auto) 65.0 Lymphocytes (%) (Auto) 25.6 Monocytes (%) (Auto) 6.1 Eosinophils (%) (Auto) 2.7 Basophils (%) (Auto) 0.6 Neutrophils # (Auto) 4.8 Lymphocytes # (Auto) 1.9 Monocytes # (Auto) 0.5 Eosinophils # (Auto) 0.2 Basophils # (Auto) 0.0 CBC Comment DIFF FINAL Differential Comment Sodium Level 140 Potassium Level 4.0 Chloride Level 105 Carbon Dioxide Level 28.0 Anion Gap 7 Blood Urea Nitrogen 17 Creatinine 0.93 Estimat Glomerular Filtration 59 Rate Random Glucose 89 Calcium Level 9.5 Total Bilirubin 0.4 Aspartate Amino Transf 26 (AST/SGOT) Alanine Aminotransferase 21 (ALT/SGPT) Alkaline Phosphatase 108 Total Protein 8.0 Albumin 3.8 Total Creatine Kinase 60 Troponin I 0.10 Urine Color YELLOW Urine Turbidity HAZY Urine pH 7.5 Urine Specific Adams 1.015 Urine Protein TRACE Urine Glucose (UA) NEG Urine Ketones NEG Urine Occult Blood NEG Urine Nitrite NEG Urine Bilirubin NEG Urine Urobilinogen LESS THAN 2.0 Urine Leukocyte Esterase LARGE Urine WBC 24 Urine Amorphous Sediment RARE Microscopic Urinalysis Comment CULTURE INDICATED Lactic Acid Level 1.3 Date/Time Procedure Status Source Growth 03/26/17 19:49 Urine Culture Received Urine Clean Catch Pending Result Diagram: 03/26/174 03/26/17 1904 Imaging Last Impressions Chest X-Ray 03/26/17 0000 Signed Impressions: Service Date/Time: Sunday, March 26, 2017 20:52 - CONCLUSION: No acute disease. Igor Wilson MD FACR Assessment and Plan Problem List: (1) Urinary tract infection ICD Code: N39.0 Status: Acute (2) Elevated troponin ICD Code: R74.8 Status: Acute (3) Hypertension ICD Code: I10 Status: Chronic (4) Dementia ICD Code: F03.90 Status: Chronic Assessment and Plan 76 y/o female with a history of dementia, HTN, COPD and dyslipidemia who is also a poor historian was brought to the ED with AMS. UTI suspect Escherichia coli, abnormal UA, lactic acid 1.3 -Rocephin IV -Urine culture pending Elevated troponin, troponin first set 0.10, no active chest pain -Serial troponin and EKG ordered -Monitor telemetry Hypertension, chronic, currently stable -Resume home medications Norvasc Dementia, chronic -Resume home medications Namenda DVT prophylaxis: SCDs This note was transcribed by rachna Quiroga. I, Dr. Marty Hernandez personally performed the history, physical exam, and medical decision making; and confirmed the accuracy of the information in the transcribed note. Authenticated by Dr. Marty Hernandez on 03/27/17 at 04:55. Discussed Condition With Patient and ED physician Ana Quiroga Mar 27, 2017 02:36 Marty Hernandez MD Mar 27, 2017 04:55
--- NOTE | 2017-03-27 08:43 | HHI.PR ---
Subjective Remarks Follow up for UTI with encephalopathy. The patient is awake, alert, oriented to self only. She has no medical complaints including no fevers/chills, lightheadedness, dizziness, chest pain, palpitations, shortness of breath, abdominal pain, nausea/vomiting, or diarrhea. Vitals signs reviewed and stable overnight. Objective Vitals Vital Signs Date Time Temp Pulse Resp B/P Pulse Ox O2 Delivery O2 Flow Rate FiO2 03/27/17 03:07 97.8 68 17 131/60 99 03/27/17 02:20 68 18 147/87 100 Room Air 03/27/17 00:09 84 18 145/83 97 Room Air 03/27/17 00:09 97 Room Air 03/27/17 00:09 98 Room Air 03/26/17 19:57 80 18 134/63 98 Room Air 03/26/17 18:19 98.7 73 16 141/65 96 Result Diagram: 03/26/17 1904 03/26/17 1904 Imaging Last Impressions Chest X-Ray 03/26/17 0000 Signed Impressions: Service Date/Time: Sunday, March 26, 2017 20:52 - CONCLUSION: No acute disease. Igor Wilson MD FACR Objective Remarks GENERAL: Thin cachectic appearing pleasantly confused elderly female patient in [facility]. SKIN: Warm and dry. No rash. HEENT: Normocephalic. Atraumatic. Pupils equal and round. Mucous membranes pink and moist. NECK: Supple. Trachea midline. CARDIOVASCULAR: Regular rate and rhythm. S1, S2 noted. No murmur appreciated. RESPIRATORY: No accessory muscle use. Clear to auscultation. Breath sounds equal bilaterally. GASTROINTESTINAL: Scaphoid abdomen, soft, non-tender, nondistended. Normoactive bowel sounds x4. MUSCULOSKELETAL: No obvious deformities. Extremities without clubbing, cyanosis , or edema. NEUROLOGICAL: Awake and alert. No obvious cranial nerve deficits. Motor grossly within normal limits. Normal speech. PSYCHIATRIC: insight and judgment poor. Medications and IVs Current Medications Medications (Trade) Dose Ordered Sig/Fredi Route Start Time Stop Time Status Last Admin (NS Flush) 2 ml UNSCH PRN IV FLUSH 03/26/17 23:45 (NS Flush) 2 ml BID IV FLUSH 03/27/17 09:00 (Tylenol) 650 mg Q4H PRN PO 03/26/17 23:45 (Zofran Inj) 4 mg Q6H PRN IVP 03/26/17 23:45 (Narcan Inj) 0.4 mg UNSCH PRN IV 03/26/17 23:45 (Milk Of Magnesia Liq) 30 ml Q12H PRN PO 03/26/17 23:45 (Senokot) 17.2 mg Q12H PRN PO 03/26/17 23:45 (Dulcolax Supp) 10 mg DAILY PRN RECTAL 03/26/17 23:45 Lactulose 30 ml 30 ml DAILY PRN PO 03/26/17 23:45 (Rocephin Inj/NS Inj) 100 ml @ 200 mls/hr Q24H IV 03/27/17 21:00 (Norvasc) 5 mg DAILY PO 03/27/17 09:00 (Pravachol) 20 mg DAILY PO 03/27/17 09:00 (Theragran M Tab) 1 tab DAILY PO 03/27/17 09:00 (KCl) 20 meq DAILY PO 03/27/17 09:00 Patient Own Medication PT OWN MED: NAMENDA... DAILY PO 03/27/17 09:00 A/P Problem List: (1) Urinary tract infection ICD Code: N39.0 Status: Acute (2) Elevated troponin ICD Code: R74.8 Status: Acute (3) Hypertension ICD Code: I10 Status: Chronic (4) Dementia ICD Code: F03.90 Status: Chronic Assessment and Plan 76 y/o female with a history of dementia, HTN, COPD and dyslipidemia who is also a poor historian was brought to the ED with AMS. Acute Metabolic Encephalopathy: suspect secondary to UTI in combination with underlying dementia. -treat UTI as below -monitor neuro checks -fall precautions UTI: abnormal UA with large leuks. Lactic acid 1.3. Escherichia coli on previous urine culture February2017. -Continue IV Rocephin -Urine culture pending Elevated troponin, troponin first set 0.10, no active chest pain -Serial troponins trended, 0.10 --> 0.09 --> third set pending -EKG reviewed, no acute ischemic changes -Monitor on telemetry -with no complaints of chest pain, will manage medically for now, continue statin, amlodipine, add baby aspirin Severe Protein Calorie Malnutrition: BMI 16, patient cachectic on exam -add Ensure tid to each meal -consult call center recruiter Hypertension, chronic, currently stable -Resume home medications Norvasc Dementia, chronic -Resume home medications Namenda DVT prophylaxis: SCDs Discharge Planning Pending further clinical improvement and urine culture results. Likely discharge tomorrow. Problem Qualifiers (1) Urinary tract infection: Qualified Code: N30.00 - Acute cystitis without hematuria Marie Romero PA-C Mar 27, 2017 8:43 am
[2017-03-27] MEDS: NAMENDA 7 MG PO SCH (09:00)
[2017-03-27] MEDS: PRAVASTATIN SOD 20 MG TAB PO SCH (09:48)
[2017-03-27] MEDS: MULTIVITAMINS/MINERALS THERAPEUTIC TAB PO SCH (09:48)
[2017-03-27] MEDS: SODIUM CHLORIDE 0.9% FLUSH 10 ML FLUSH IV FLUSH SCH ×2 (09:48→20:36)
[2017-03-27] MEDS: POTASSIUM CHLORIDE 20 MEQ CONTROLLED RELEASE TAB PO SCH (09:48)
[2017-03-27] MEDS: amLODIPine BESYLATE 5 MG TAB PO SCH (09:48)
[2017-03-27] MEDS: ASPIRIN EC 81 MG TABEC PO SCH (09:48)
--- NOTE | 2017-03-27 15:58 | EKG ---
Date Performed: 03/27/2017 Time Performed: 00:40:56 PTAGE: 76 years EKG: Sinus rhythm BORDERLINE LEFT AXIS DEVIATION BORDERLINE ECG PREVIOUS TRACING : 03/07/2017 11.33 Compared to prior tracing no significant change DOCTOR: Carlos Zhou Interpretating Date/Time 03/27/2017 15:58:07
[2017-03-27] MEDS: cefTRIAXone INJ 1,000 MG in SODIUM CHLORIDE 0.9% INJ 100 ML IV SCH (20:37)
[2017-03-28 00:42] VITALS: BP 115/55; PULSE 80; RESP 16; TEMP 98.4; O2SAT 94
[2017-03-28 04:44] VITALS: BP 126/59; PULSE 69; RESP 16; TEMP 98.2; O2SAT 95
[2017-03-28 08:07] VITALS: BP 108/54; PULSE 71; RESP 15; TEMP 97.4; O2SAT 96
--- NOTE | 2017-03-28 08:49 | HHI.PR ---
Subjective Remarks Follow up for UTI with encephalopathy. The patient is awake, alert, still oriented to self only. She denies any medical complaints including no fever/ chills, abdominal pain, nausea/vomiting, or urinary complaints. RN concerned patient is not eating or drinking much. When asked if she is hungry, she states "not really". Objective Vitals Vital Signs Date Time Temp Pulse Resp B/P Pulse Ox O2 Delivery O2 Flow Rate FiO2 03/28/17 08:07 97.4 71 15 108/54 96 03/28/17 04:44 98.2 69 16 126/59 95 03/28/17 00:42 98.4 80 16 115/55 94 03/27/17 19:30 98.1 105 17 160/70 90 03/27/17 15:31 98.5 87 16 134/64 96 03/27/17 12:00 97.8 83 15 158/69 94 I/O 03/27/17 03/27/17 03/27/17 03/28/17 03/28/17 03/28/17 07:00 15:00 23:00 07:00 15:00 23:00 Intake Total 302 ml Balance 302 ml Intake Oral 300 ml IV Total 2 ml Result Diagram: 03/26/17 1904 03/26/17 1904 Imaging Last Impressions Chest X-Ray 03/26/17 0000 Signed Impressions: Service Date/Time: Sunday, March 26, 2017 20:52 - CONCLUSION: No acute disease. Igor Wilson MD FACR Objective Remarks GENERAL: Thin cachectic appearing pleasantly confused elderly female patient in [facility]. SKIN: Warm and dry. No rash. HEENT: Normocephalic. Atraumatic. Pupils equal and round. Mucous membranes pink and moist. NECK: Supple. Trachea midline. CARDIOVASCULAR: Regular rate and rhythm. S1, S2 noted. No murmur appreciated. RESPIRATORY: No accessory muscle use. Clear to auscultation. Breath sounds equal bilaterally. GASTROINTESTINAL: Scaphoid abdomen, soft, non-tender, nondistended. Normoactive bowel sounds x4. MUSCULOSKELETAL: No obvious deformities. Extremities without clubbing, cyanosis , or edema. NEUROLOGICAL: Awake and alert. No obvious cranial nerve deficits. Motor grossly within normal limits. Normal speech. PSYCHIATRIC: insight and judgment poor. Medications and IVs Current Medications Medications (Trade) Dose Ordered Sig/Fredi Route Start Time Stop Time Status Last Admin (NS Flush) 2 ml UNSCH PRN IV FLUSH 03/26/17 23:45 (NS Flush) 2 ml BID IV FLUSH 03/27/17 09:00 03/27/17 20:36 (Tylenol) 650 mg Q4H PRN PO 03/26/17 23:45 (Zofran Inj) 4 mg Q6H PRN IVP 03/26/17 23:45 (Narcan Inj) 0.4 mg UNSCH PRN IV 03/26/17 23:45 (Milk Of Magnesia Liq) 30 ml Q12H PRN PO 03/26/17 23:45 (Senokot) 17.2 mg Q12H PRN PO 03/26/17 23:45 (Dulcolax Supp) 10 mg DAILY PRN RECTAL 03/26/17 23:45 Lactulose 30 ml 30 ml DAILY PRN PO 03/26/17 23:45 (Rocephin Inj/NS Inj) 100 ml @ 200 mls/hr Q24H IV 03/27/17 21:00 03/27/17 20:37 (Norvasc) 5 mg DAILY PO 03/27/17 09:00 03/27/17 09:48 (Pravachol) 20 mg DAILY PO 03/27/17 09:00 03/27/17 09:48 (Theragran M Tab) 1 tab DAILY PO 03/27/17 09:00 03/27/17 09:48 (KCl) 20 meq DAILY PO 03/27/17 09:00 03/27/17 09:48 Patient Own Medication PT OWN MED: NAMENDA... DAILY PO 03/27/17 09:00 (Ecotrin Ec) 81 mg DAILY PO 03/27/17 09:00 03/27/17 09:48 A/P Problem List: (1) Urinary tract infection ICD Code: N39.0 Status: Acute (2) Elevated troponin ICD Code: R74.8 Status: Acute (3) Hypertension ICD Code: I10 Status: Chronic (4) Dementia ICD Code: F03.90 Status: Chronic Assessment and Plan 76 y/o female with a history of dementia, HTN, COPD and dyslipidemia who is also a poor historian was brought to the ED with AMS. Acute Metabolic Encephalopathy: suspect secondary to UTI in combination with underlying dementia. -treat UTI as below -monitor neuro checks -fall precautions -ST for cognitive evaluation UTI, Failed Outpatient: Patient previously admitted 03/07-03/15 for sepsis with E. coli UTI, discharged on Cipro with HHC, returns with recurrent UTI, UA with large leuks. -Continue IV Rocephin for now -Urine culture preliminary with Group D enterococcus Elevated troponin, troponin first set 0.10, no active chest pain -Serial troponins trended, 0.10 --> 0.09 -EKG reviewed, no acute ischemic changes -Monitor on telemetry -with no complaints of chest pain, will manage medically for now, continue statin, amlodipine, add baby aspirin -consult cardiology if patient develops any chest pain or angina equivalent Severe Protein Calorie Malnutrition: BMI 16, patient cachectic on exam -add Ensure tid to each meal -consult deckhand crab boat -03/28 patient still not eating much, will consult ST for swallow eval, start calorie counting Hypertension, chronic, currently stable -Resume home medications Norvasc Dementia, chronic -Resume home medications Namenda Inability to Care for Self: failed outpatient [facility]HC after discharge on 03/15/17. -PT recommending rehab -case management consult for discharge planning DVT prophylaxis: SCDs Discharge Planning Pending further clinical improvement and urine culture results. Patient is not eating or drinking. Patient needs rehab per PT. She failed outpatient treatment with HHC after discharge on 03/15. Needs rehab placement. Case management consulted. Problem Qualifiers (1) Urinary tract infection: Qualified Code: N30.00 - Acute cystitis without hematuria Marie Romero PA-C Mar 28, 2017 8:49 am
[2017-03-28] MEDS: NAMENDA 7 MG PO SCH (09:00)
[2017-03-28] MEDS: MULTIVITAMINS/MINERALS THERAPEUTIC TAB PO SCH (10:14)
[2017-03-28] MEDS: POTASSIUM CHLORIDE 20 MEQ CONTROLLED RELEASE TAB PO SCH (10:15)
[2017-03-28] MEDS: amLODIPine BESYLATE 5 MG TAB PO SCH (10:15)
[2017-03-28] MEDS: SODIUM CHLORIDE 0.9% FLUSH 10 ML FLUSH IV FLUSH SCH ×2 (10:15→20:48)
[2017-03-28] MEDS: ASPIRIN EC 81 MG TABEC PO SCH (10:15)
[2017-03-28] MEDS: PRAVASTATIN SOD 20 MG TAB PO SCH (10:15)
[2017-03-28 11:14] LABS: BICARBONATE 27.9 MEQ/L (21.0-32.0); POTASSIUM 4.1 MEQ/L (3.5-5.1)
[2017-03-28 12:00] VITALS: BP 104/56; PULSE 74; RESP 16; TEMP 97.3; O2SAT 96
[2017-03-28 15:45] VITALS: BP 108/57; PULSE 82; RESP 16; TEMP 97.5; O2SAT 98
[2017-03-28 19:32] VITALS: BP 106/58; PULSE 83; RESP 17; TEMP 97.2; O2SAT 97
[2017-03-28] MEDS: cefTRIAXone INJ 1,000 MG in SODIUM CHLORIDE 0.9% INJ 100 ML IV SCH (20:47)
[2017-03-29 01:16] VITALS: BP 111/56; PULSE 81; RESP 16; TEMP 98.1; O2SAT 96
[2017-03-29 04:30] VITALS: BP 129/65; PULSE 68; RESP 16; TEMP 96.9; O2SAT 97
[2017-03-29 08:00] VITALS: BP 129/67; PULSE 70; RESP 16; TEMP 98; O2SAT 95
[2017-03-29] MEDS: PRAVASTATIN SOD 20 MG TAB PO SCH (08:51)
[2017-03-29] MEDS: amLODIPine BESYLATE 5 MG TAB PO SCH (08:51)
[2017-03-29] MEDS: MULTIVITAMINS/MINERALS THERAPEUTIC TAB PO SCH (08:51)
[2017-03-29] MEDS: ASPIRIN EC 81 MG TABEC PO SCH (08:51)
[2017-03-29] MEDS: POTASSIUM CHLORIDE 20 MEQ CONTROLLED RELEASE TAB PO SCH (08:51)
[2017-03-29] MEDS: SODIUM CHLORIDE 0.9% FLUSH 10 ML FLUSH IV FLUSH SCH ×2 (08:52→21:39)
[2017-03-29] MEDS: NAMENDA 7 MG PO SCH (08:52)
--- NOTE | 2017-03-29 09:23 | HHI.PR ---
Subjective Remarks The patient was resting comfortably in bed. She was laughing inappropriately at times. She had no acute complaints. She did not know where she was. She said everything's been fine. She denied any pain. Objective Vitals Vital Signs Date Time Temp Pulse Resp B/P Pulse Ox O2 Delivery O2 Flow Rate FiO2 03/29/17 08:00 98.0 70 16 129/67 95 03/29/17 04:30 96.9 68 16 129/65 97 03/29/17 01:16 98.1 81 16 111/56 96 03/28/17 19:32 97.2 83 17 106/58 97 03/28/17 15:45 97.5 82 16 108/57 98 03/28/17 12:00 97.3 74 16 104/56 96 I/O 03/28/17 03/28/17 03/28/17 03/29/17 03/29/17 03/29/17 07:00 15:00 23:00 07:00 15:00 23:00 Intake Total 60 ml Balance 60 ml Intake Oral 60 ml Result Diagram: 03/26/17 1904 03/28/17 1028 Imaging Last Impressions Chest X-Ray 03/26/17 0000 Signed Impressions: Service Date/Time: Sunday, March 26, 2017 20:52 - CONCLUSION: No acute disease. Igor Wilson MD FACR Objective Remarks GENERAL: Thin cachectic appearing, pleasantly confused elderly female patient in [facility]. SKIN: Warm and dry. No rash. HEENT: Normocephalic. Atraumatic. Pupils equal and round. Mucous membranes pink and moist. NECK: Supple. Trachea midline. CARDIOVASCULAR: Regular rate and rhythm. S1, S2 noted. No murmur appreciated. RESPIRATORY: No accessory muscle use. Clear to auscultation. Breath sounds equal bilaterally. GASTROINTESTINAL: Scaphoid abdomen, soft, non-tender, nondistended. Normoactive bowel sounds x4. MUSCULOSKELETAL: No obvious deformities. Extremities without clubbing, cyanosis , or edema. NEUROLOGICAL: Awake and alert. No obvious cranial nerve deficits. Motor grossly within normal limits. Normal speech. PSYCHIATRIC: insight and judgment poor. Medications and IVs Current Medications Medications (Trade) Dose Ordered Sig/Fredi Route Start Time Stop Time Status Last Admin (NS Flush) 2 ml UNSCH PRN IV FLUSH 03/26/17 23:45 03/28/17 21:24 (NS Flush) 2 ml BID IV FLUSH 03/27/17 09:00 03/29/17 08:52 (Tylenol) 650 mg Q4H PRN PO 03/26/17 23:45 (Zofran Inj) 4 mg Q6H PRN IVP 03/26/17 23:45 (Narcan Inj) 0.4 mg UNSCH PRN IV 03/26/17 23:45 (Milk Of Magnesia Liq) 30 ml Q12H PRN PO 03/26/17 23:45 (Senokot) 17.2 mg Q12H PRN PO 03/26/17 23:45 (Dulcolax Supp) 10 mg DAILY PRN RECTAL 03/26/17 23:45 (Lactulose Liq) 30 ml DAILY PRN PO 03/26/17 23:45 (Norvasc) 5 mg DAILY PO 03/27/17 09:00 03/29/17 08:51 (Pravachol) 20 mg DAILY PO 03/27/17 09:00 03/29/17 08:51 (Theragran M Tab) 1 tab DAILY PO 03/27/17 09:00 03/29/17 08:51 (KCl) 20 meq DAILY PO 03/27/17 09:00 03/29/17 08:51 Patient Own Medication PT OWN MED: NAMENDA... DAILY PO 03/27/17 09:00 Aspirin 81 mg 81 mg DAILY PO 03/27/17 09:00 03/29/17 08:51 (Unasyn Inj/NS Inj) 100 ml @ 200 mls/hr Q6H IV 03/29/17 09:30 UNV A/P Problem List: (1) Urinary tract infection ICD Code: N39.0 Status: Acute (2) Elevated troponin ICD Code: R74.8 Status: Acute (3) Hypertension ICD Code: I10 Status: Chronic (4) Dementia ICD Code: F03.90 Status: Chronic Assessment and Plan Acute Metabolic Encephalopathy Suspect secondary to UTI in combination with underlying dementia. - treat UTI as below. - neuro checks. - fall precautions. - ST for cognitive evaluation. - continue Namenda. - PT/ OT. UTI, Failed Outpatient Patient previously admitted 03/07-03/15 for sepsis with E. coli UTI, discharged on Cipro with HHC, returns with recurrent UTI, UA with large leuks. Urine culture with enterococcus faecalis. - switch ceftriaxone to IV Unasyn per sensitivities. Elevated troponin Troponin first set 0.10, no active chest pain. Serial troponins trended, 0.10 -- > 0.09. EKG reviewed, no acute ischemic changes. - Monitor on telemetry. - with no complaints of chest pain, will manage medically for now, continue statin, amlodipine, add baby aspirin. - consult cardiology if patient develops any chest pain or angina equivalent. Severe Protein Calorie Malnutrition BMI 16, patient cachectic on exam. - add Ensure tid to each meal. - consult braid pattern setter. Calorie count started. - diet per ST. Inability to Care for Self Failed outpatient HHC after discharge on 03/15/17. - PT recommending rehab. Add OT. - case management consult for discharge planning. DVT prophylaxis: SCDs Discharge Planning Will likely need SNF Problem Qualifiers (1) Urinary tract infection: Qualified Code: N30.00 - Acute cystitis without hematuria Robert Morales DO Mar 29, 2017 09:23
[2017-03-29] MEDS: AMPICILLIN-SULBACTAM INJ 3 GM in SODIUM CHLORIDE 0.9% INJ 100 ML IV SCH ×3 (11:11→21:39)
[2017-03-29 12:00] VITALS: BP 107/62; PULSE 83; RESP 16; TEMP 96.4; O2SAT 97
[2017-03-29 16:00] VITALS: BP 106/59; PULSE 96; RESP 16; TEMP 97.9; O2SAT 94
[2017-03-29 21:00] VITALS: BP 128/65; PULSE 102; RESP 18; TEMP 98.1; O2SAT 93
[2017-03-30] VITALS: BP 117/59; PULSE 99; RESP 18; TEMP 97.1; O2SAT 95
[2017-03-30] MEDS: AMPICILLIN-SULBACTAM INJ 3 GM in SODIUM CHLORIDE 0.9% INJ 100 ML IV SCH (04:09)
[2017-03-30 04:25] VITALS: BP 112/56; PULSE 85; RESP 16; TEMP 98.2; O2SAT 94
[2017-03-30 08:00] VITALS: BP 133/90; PULSE 90; RESP 18; TEMP 97.6; O2SAT 92
[2017-03-30] MEDS: MULTIVITAMINS/MINERALS THERAPEUTIC TAB PO SCH (08:23)
[2017-03-30] MEDS: ASPIRIN EC 81 MG TABEC PO SCH (08:24)
[2017-03-30] MEDS: amLODIPine BESYLATE 5 MG TAB PO SCH (08:24)
[2017-03-30] MEDS: SODIUM CHLORIDE 0.9% FLUSH 10 ML FLUSH IV FLUSH SCH (08:24)
[2017-03-30] MEDS: POTASSIUM CHLORIDE 20 MEQ CONTROLLED RELEASE TAB PO SCH (08:24)
[2017-03-30] MEDS: PRAVASTATIN SOD 20 MG TAB PO SCH (08:24)
[2017-03-30] MEDS: NAMENDA 7 MG PO SCH (08:24)
[2017-03-30] MEDS ORDERED: AUGM875T3 PO (09:14)
[2017-03-30] MEDS ORDERED: ASPI-99 PO (09:14)
[2017-03-30] MEDS ORDERED: LISI2.5T3 PO (09:18)
--- NOTE | 2017-03-30 09:19 | HHI.DCPOC ---
Discharge Care Plan Diagnosis: (1) Urinary tract infection (2) Elevated troponin (3) Dementia (4) COPD (chronic obstructive pulmonary disease) (5) Underweight Goals to Promote Your Health * To prevent worsening of your condition and complications * To maintain your health at the optimal level Directions to Meet Your Goals Take your medications as prescribed Follow your dietary instruction Follow activity as directed Keep your appointments as scheduled Take your immunizations and boosters as scheduled If your symptoms worsen call your PCP, if no PCP go to Urgent Care Center or Emergency Room Smoking is Dangerous to Your Health. Avoid second hand smoke Call the 24-hour hour crisis hotline for domestic abuse at Robert Morales DO Mar 30, 2017 09:19
--- NOTE | 2017-03-30 09:26 | HHI.DS ---
Discharge Summary Admission Date Mar 28, 2017 at 16:41 Discharge Date: Mar 30, 2017 Admitting Diagnosis UTI, AMS (1) Urinary tract infection ICD Code: N39.0 Diagnosis: Principal (2) Elevated troponin ICD Code: R74.8 (3) Hypertension ICD Code: I10 (4) Dementia ICD Code: F03.90 Procedures None Brief History - From Admission Written by STEWART Lassiter acting as scribe for Dr. Francis] on 03/27/17 at 02:34. 76 y/o female with a history of dementia, HTN, COPD and dyslipidemia who is also a poor historian was brought to the ED with AMS. She is oriented to self and city, but she is unable to tell you the year and her medical history. She states she feels fine, denies any chest pain, shortness of breath, fever or chills. There is no family or caregiver at bedside for questioning. EMR was reviewed for medical and surgical history. Patient was recently admitted on March 07 for sepsis related to a UTI. Escherichia coli was found in her urine. She was treated with IV Rocephin and switched to ciprofloxacin on discharge. CBC/BMP: 03/26/17 1904 03/28/17 1028 Significant Findings Laboratory Tests Test 03/28/17 10:28 Estimat Glomerular Filtration 57 ML/MIN (>89) Rate Imaging Last Impressions Chest X-Ray 03/26/17 0000 Signed Impressions: Service Date/Time: Sunday, March 26, 2017 20:52 - CONCLUSION: No acute disease. Igor Wilson MD FACR PE at Discharge GENERAL: Thin cachectic appearing, pleasantly confused elderly female patient in [facility]. SKIN: Warm and dry. No rash. HEENT: Normocephalic. Atraumatic. Pupils equal and round. Mucous membranes pink and moist. NECK: Supple. Trachea midline. CARDIOVASCULAR: Regular rate and rhythm. S1, S2 noted. No murmur appreciated. RESPIRATORY: No accessory muscle use. Clear to auscultation. Breath sounds equal bilaterally. GASTROINTESTINAL: Scaphoid abdomen, soft, non-tender, nondistended. Normoactive bowel sounds x4. MUSCULOSKELETAL: No obvious deformities. Extremities without clubbing, cyanosis , or edema. NEUROLOGICAL: Awake and alert. No obvious cranial nerve deficits. Motor grossly within normal limits. Normal speech. PSYCHIATRIC: insight and judgment poor. Pt update on day of discharge The patient was resting comfortably in bed. She had no acute complaints. She denied chest pain or shortness of breath. Discussed with nursing and case management. Hospital Course Acute Metabolic Encephalopathy The pt has underlying dementia and was found to have a UTI. She was started on antibiotics. She was placed on neuro checks and fall precautions. She worked with speech therapy. We continued her Namenda. She worked with PT/ OT. She will be discharged to a SNF. She will follow up with neurology. UTI Patient previously admitted 03/07-03/15 for sepsis with E. coli UTI, discharged on Cipro with [facility], returns with recurrent UTI. Urine culture grew enterococcus faecalis. We switched ceftriaxone to IV Unasyn per sensitivities. She will be discharged on a course of Augmentin. Elevated troponin Troponin 0.10, 0.09. No active chest pain or shortness of breath. EKG reviewed , no acute ischemic changes. She was recently hospitalized for sepsis which may have contributed. She was monitored on telemetry. She received medical management. Baby aspirin and low dose ACEi were started. She was continued on her cholesterol medication. She had a normal stress test in 2013. She will follow up with cardiology as an outpt. She would be a poor candidate for a more invasive work-up considering her dementia and functional status. Severe Protein Calorie Malnutrition BMI 16, patient cachectic on exam. We added Ensure tid to each meal. We consulted a personal care home administrator and a calorie count was started. Her diet was managed by ST. Pt Condition on Discharge: Stable Discharge Disposition: Discharge to SNF Discharge Time: > 30 minutes Discharge Instructions DIET: Follow Instructions for: As Tolerated, No Restrictions Speech Therapy-Diet Recommends: Mechanical Soft Additional Diet Instructions: CHOPPED MEAT & EXTRA GRAVY. NO BAGEL PLEASE SEND ENURE WITH ALL MEALS Activities you can perform: Weight Bearing as De Follow up Referrals: Cardiology - 1 Week Neurology - 2 Weeks PCP Follow-up - 1 Week New Medications: Amoxicillin-Clavulanate (Augmentin) 875-125 Mg Tab 1 TAB PO BID Infection #12 Ref 0 TAB Lisinopril (Lisinopril) 2.5 Mg Tab 2.5 MG PO DAILY #30 Ref [address] (Adult Aspirin EC Low Strength) 81 Mg Tabec 81 MG PO DAILY Heart #30 TAB Continued Medications: Cholecalciferol (D3 Maximum Strength) 5,000 Unit Cap 5000 TAB PO DAILY Nutritional Supplement #30 Ref 0 CAP Fish Oil-Cholecalciferol ([place]-3 Fish Oil/Vitamin) 1,000-1,000 Mg Cap 1 CAP PO DAILY Nutritional Supplement Ref 0 CAP Lovastatin (Lovastatin) 20 Mg Tab 20 MG PO DAILY Cholesterol Management #30 Ref 0 TAB Memantine Er (Namenda Xr) 7 Mg Caper 7 MG PO DAILY Alzheimer Disease #30 Ref 0 CAP Multiple Vitamins W/ Minerals (One Daily-Minerals) 1 Tab 1 TAB PO DAILY #100 Ref 0 TAB Nutritional Supplements (Ensure Plus) 1 Liq Liq 1 BOTTLE PO TID Discontinued Medications: Amlodipine (Amlodipine) 5 Mg Tab 5 MG PO DAILY Blood Pressure Management #30 Ref 0 TAB Ciprofloxacin (Cipro) 500 Mg Tab 500 MG PO BID Infection Days 5 Ref 0 TAB Potassium Chloride ER (Potassium Chloride ER) 20 Meq Tab 20 MEQ PO DAILY Electrolyte Replacement #30 Ref 0 TAB Robert Morales DO Mar 30, 2017 09:26
[2017-03-30 12:00] VITALS: BP 124/68; PULSE 94; RESP 18; TEMP 98; O2SAT 96
== END 2017-03-30 12:51 | DRG 689 ==
LOC: NEDAMB 17:55 → NEDA 23:34 → NEPFCDU 03-27 03:01 → OBSVTOIN 03-28 16:41 → HOCA 03-29 04:31
PROVIDERS: ADMIT Hospitalist; ATTEND Hospitalist
DX: N30.00 Acute cystitis without hematuria (principal); G93.41 Metabolic encephalopathy; E43 Unspecified severe protein-calorie malnutrition; Z68.1 Body mass index [BMI] 19.9 or less, adult; R64 Cachexia; J44.9 Chronic obstructive pulmonary disease, unspecified; F03.90 Unspecified dementia, unspecified severity, without behavioral disturbance, psychotic disturbance, mood disturbance, and anxiety; I10 Essential (primary) hypertension; F17.210 Nicotine dependence, cigarettes, uncomplicated; E78.5 Hyperlipidemia, unspecified; B95.2 Enterococcus as the cause of diseases classified elsewhere; Z87.440 Personal history of urinary (tract) infections; M19.90 Unspecified osteoarthritis, unspecified site
CPT/HCPCS: 71010; 80048; 80053; 81001; 82140; 82550; 82607; 83605; 84443; 84484; 85025; 87077; 87086; 87186; 93005; G0378; G8987-GP; G8988-GP; G8996-GN; G8997-GN; J0295; J0696; J7030